=== PATIENT | female | born 1955 | race Caucasian/White ===

== ENCOUNTER → 2017-01-26 | Outpatient (CLI) | payer BC ==
--- NOTE | 2017-01-26 22:19 | CONS ---
DATE OF CONSULTATION: REASON FOR CONSULTATION: Sleep apnea Seda is 61. She was diagnosed having obstructive sleep apnea by Dr. Loera back in 2006. I was able to retrieve the original sleep study and back then the patient had severe CARLOS with an AHI of 53. The patient was offered CPAP therapy initially at a pressure of 8 cm of water and subsequently she was given another titration back in 2009 and she was brought up to a pressure of 10 cm of water. The patient has been on treatment for the past 10 years. She is coming in with request of her having a new machine knowing that her older machine has become noisy and quite ineffective. Note that I have noted that the patient has gained at least 50 pounds over the past 10 years. The patient used to weigh 176 and currently she is up to 226, and her current BMI is 38.7. She is using a Hatch LT nasal pillows. She is snoring while on treatment. She is waking up frequently middle of the night. She goes to bed around 9:00 p.m., wakes at 5:45 a.m. in the morning. On weekends, she wakes up at 730. She is requesting a re-evaluation based on above mentioned changes. PAST MEDICAL HISTORY: 1. Obstructive sleep apnea details as above. 2. Hypertension. 3. Obesity. 4. Hyperlipidemia. 5. Chronic allergic rhinitis. 6. Environmental allergies. 7. Gastroesophageal reflux disease. Surgical history includes oral surgery. DRUG ALLERGIES ARE TO PENICILLIN. Outpatient medication list includes: 1. Atorvastatin. 2. Omeprazole. 3. Losartan. 4. Claritin. 5. Aleve. 6. Centrum. 7. Vitamin B. 8. Vitamin D. 9. Magnesium. 10. Potassium. DRUG ALLERGIES ARE TO PENICILLIN. FAMILY HISTORY: Noncontributory at this stage although positive for sleep apnea, in addition to that, hypertension, heart disease and stroke also run in the family. REVIEW OF SYSTEMS: Twelve-point review of systems was done. Positive findings were all mentioned above in the history of present illness. BP is 134/73, pulse 74, respirations 16, temperature 98.5, saturation 97% on room air. Weight is 226. Height is 5 foot 4, BMI is 38.7. Neck size 14-3/4. GENERAL APPEARANCE: Obese, calm, comfortable. HEENT: Mallampati class III, crowding of posterior pharynx is present. The patient is a micrognathia and high laying tongue. LUNGS: Clear to auscultation. HEART: Sounds are regular rate and rhythm. Normal S1, S2. ABDOMEN: Soft, nontender. No organomegaly. EXTREMITIES: No clubbing, no cyanosis, or clubbing. IMPRESSION: 1. Severe obstructive sleep apnea with a baseline AHI of 53, based on a sleep study that was done 2006. 2. Suboptimal CPAP treatment based on malfunctioning. CPAP unit in addition to a 50 pound weight gain. The patient is currently on a CPAP pressure of 10 cm of water. 3. Hypertension. 4. Obesity. 5. Hyperlipidemia. 6. Chronic allergic rhinitis. 7. Gastroesophageal reflux disease. PLAN: The patient will be asked to come in for another CPAP titration, during which the pressure will be updated. The patient will be given new mask interface. She prefers nasal pillows and we will try to put her on AirFit P10 nasal pillows or any other alternatives that may be comfortable to the patient. She will be encouraged to lose weight. A compliancy check will be done after the patient obtains her CPAP machine following her CPAP titration. Will continue to follow.
== END | disposition home or self-care (01) ==
LOC: SLEEP 13:47
PROVIDERS: ATTEND Internal Medicine Critical Care Medicine
DX: G47.33 Obstructive sleep apnea (adult) (pediatric) (principal); I10 Essential (primary) hypertension; E66.9 Obesity, unspecified; E78.5 Hyperlipidemia, unspecified; J30.9 Allergic rhinitis, unspecified; K21.9 Gastro-esophageal reflux disease without esophagitis; Z79.1 Long term (current) use of non-steroidal anti-inflammatories (NSAID); Z79.899 Other long term (current) drug therapy; Z88.0 Allergy status to penicillin
CPT/HCPCS: 99211

== ENCOUNTER → 2017-04-20 | Outpatient (CLI) | payer BC ==
--- NOTE | 2017-04-23 13:34 | PN ---
Sondra is 61 and she was diagnosed having severe obstructive sleep apnea with an AHI of 53. Today, she is coming in for a compliancy check. She is utilizing CPAP pressure at 13 cm of water. She is benefiting from treatment and she is much more alert and awake during the day and her sleep quality has improved significantly. She is using her CPAP every night. She is averaging around 8.4 hours of CPAP use every night. She is using an AirFit P10 nasal pillow and her leak factor is only at 22 L and her AHI while on treatment is down to 1.8. She has no complaints. BPH is 164/78, pulse is 70, respirations 16, temperature is 98.3, weight is 228 and oxygen saturation 95% on room air. GENERAL APPEARANCE: Calm, comfortable. HEENT: Mallampati class 4. There is no goiter or neck masses. LUNGS: Clear to auscultation. Heart sounds are regular rate and rhythm, normal S1, S2, no S3, no murmurs. Abdomen is soft and nontender, no organomegaly. EXTREMITIES: No edema, no cyanosis or clubbing. IMPRESSION: 1. Severe symptomatic obstructive sleep apnea with an apnea-hypopnea index of 53. The patient has demonstrated excellent clinical response and compliance while on CPAP at a pressure of 15 cm of water. 2. Hypersomnia, improved and the patient's Mcclellan score is down to 3. 3. Obesity, body mass index of 39. 4. Hyperlipidemia, chronic allergic rhinitis. PLAN: Treatment is successful. No changes on the CPAP will be done. Encourage weight loss. See me back in a year's time. Earlier if needed. This is a successful treatment. HANNAH
== END | disposition home or self-care (01) ==
LOC: SLEEP 16:26
PROVIDERS: ATTEND Internal Medicine Critical Care Medicine
DX: G47.33 Obstructive sleep apnea (adult) (pediatric) (principal); G47.10 Hypersomnia, unspecified; E66.9 Obesity, unspecified; Z68.39 Body mass index [BMI] 39.0-39.9, adult

== ENCOUNTER → 2017-12-29 | Outpatient (CLI) | payer BC ==
--- NOTE | 2017-12-29 13:24 | NM ---
EXAMINATION TYPE: NM stress cardiolite complete DATE OF EXAM: 12/29/2017 COMPARISON: NONE HISTORY: Chest pain, abnormal EKG TECHNIQUE: After the intravenous administration of 10.23 mCi Tc 99m Sestamibi - Rest images obtained 45 minutes post injection. The patient exercised using a MARGARITO protocol and 1 minute prior to peak exercise was injected with 26.9 mCi Tc 99m Sestamibi - Stress images obtained 13 minutes post inject ion. FINDINGS: Targeted heart rate was achieved during performance of the study. Review of stress and rest SPECT josé luis ges demonstrates decreased reaffirms that the low uptake along the anterolateral wall the left ventri randal on stress as compared to rest images towards the cardiac apex and extending into the apical regio n and lateral apical location. Gated analysis shows normal wall motion with an estimated left ventri cular ejection fraction of 69 %. IMPRESSION: Findings compatible with stress induced left ventricular myocardial ischemia. Consider echocardiograp hic correlation for elevated ejection fraction A Yellow level critical message alert has been initiated for Nkechi Simmons MD via the [facility] Critical Results System on 12/29/2017 1:21 PM. This message alert has been sent to Nkechi Simmons MD v janie the preferences provided by the clinician for the receipt of Radiology Critical Findings. Message ID [id number].
--- NOTE | 2017-12-29 16:09 | P.STRESS ---
- Stress Test Note Stress Test Results/Findings: Exam Performed: NM stress cardiolite complete Exam Date: 12/29/17 Reason for Exam: CHEST PAIN Height: 5 ft 6 in Weight: 101.151 kg Protocol: MARGARITO Stage: 2 Duration of Exercise: 5:00 Resting Heart Rate: 66 Resting Blood Pressure: 137/90 Maximum Achieved Heart Rate: 133 Maximum Achieved Blood Pressure: 166/69 85% PMHR: 133 100% PMHR: 157 METS: 7.0 Technologist Comment: Stress Test Results/Findings: This is a 62-year-old female with history of hypertension, hypercholesterolemia and family history of ischemic heart disease being evaluated for cardiac status because of chest pains and abnormal EKG. Baseline EKG showed sinus rhythm with evidence of right bundle-branch block pattern. Blood pressure at rest is 130/ 90 with pulse rate of 66. Patient walked on the Margarito protocol for 5 minutes achieving a maximum heart rate of 133 with a blood pressure 166/69. EKGs taken during and after exercise continued to show right bundle-branch block pattern without any significant changes from the baseline. Patient did not express any chest pain. Final impression #1. Nondiagnostic stress test because of baseline EKG changes #2. Report of the nuclear images will be given by the radiologist.
--- NOTE | 2017-12-29 16:36 | ECHOF ---
Referral Reason:Chest Pain R07.9 Abnormal EKG R94.31 MEASUREMENTS -------- HEIGHT: 167.6 cm WEIGHT: 101.2 kg BP: 178/80 RVIDd: 3.6 cm (< 3.3) IVSd: 1.0 cm (0.6 - 1.1) LVIDd: 4.9 cm (3.9 - 5.3) LVPWd: 1.1 cm (0.6 - 1.1) IVSs: 1.5 cm LVIDs: 2.7 cm LVPWs: 1.5 cm LAESV Index (A-L): 18.81 ml/m Ao Diam: 3.4 cm (2.0 - 3.7) AV Cusp: 1.8 cm (1.5 - 2.6) LA Diam: 3.4 cm (2.7 - 3.8) MV E Pradip: 0.98 m/s MV DecT: 259 ms MV A Pradip: 0.77 m/s MV E/A Ratio: 1.27 RAP: 5.00 mmHg RVSP: 33.09 mmHg FINDINGS -------- Sinus rhythm. This was a technically adequate study. The left ventricular size is normal. There is borderline concentric left ventricular hypertrophy. Overall left ventricular systolic function is normal with, an EF between 55 - 60 %. The right ventricle is mildly enlarged. Normal LA size by volume 22+/-6 ml/m2. RA appears enlarged. Aortic valve is trileaflet and is mildly thickened. There is no evidence of aortic regurgitation. There is no evidence of aortic stenosis. The mitral valve is normal. There is trace to mild mitral regurgitation. Trace tricuspid regurgitation present. There is borderline pulmonary hypertension. The right vent ricular systolic pressure, as measured by Doppler, is 33.09mmHg. The pulmonic valve is normal. The aortic root size is normal. Normal inferior vena cava with normal inspiratory collapse consistent with estimated right atrial pre ssure of 5 mmHg. The pericardium is normal. There is no pericardial effusion. CONCLUSIONS -------- 1. Sinus rhythm. 2. This was a technically adequate study. 3. The left ventricular size is normal. 4. There is borderline concentric left ventricular hypertrophy. 5. Overall left ventricular systolic function is normal with, an EF between 55 - 60 %. 6. The right ventricle is mildly enlarged. 7. Normal LA size by volume 22+/-6 ml/m2. 8. RA appears enlarged. 9. Aortic valve is trileaflet and is mildly thickened. 10. There is trace to mild mitral regurgitation. 11. Trace tricuspid regurgitation present. 12. There is borderline pulmonary hypertension. 13. The right ventricular systolic pressure, as measured by Doppler, is 33.09mmHg. 14. The aortic root size is normal. 15. There is no pericardial effusion. TURBOGENERATOR OPERATOR: Cesar Fan RDCS
== END ==
LOC: RADNMMAIN 09:06
PROVIDERS: ATTEND Family Medicine
DX: I51.7 Cardiomegaly (principal); I27.20 Pulmonary hypertension, unspecified
CPT/HCPCS: 93017; 93306; 78452; A9500

== ENCOUNTER → 2018-01-05 | Outpatient (CLI) | payer BC ==
[2018-01-05 12:46] LABS: HCT 41.2 % (34.0-46.0); HGB 13.9 gm/dL (11.4-16.0); MCH 29.7 pg (25.0-35.0); MCHC 33.7 g/dL (31.0-37.0); Mean Platelet Volume 7.6; Platelet Count 238 k/uL (150-450); RBC 4.69 m/uL (3.80-5.40); RDW 12.4 % (11.5-15.5)
[2018-01-05 12:55] LABS: Anion Gap 11 mmol/L; Blood Urea Nitrogen 13 mg/dL (7-17); Carbon Dioxide 30 mmol/L (22-30); Chloride 102 mmol/L (98-107); Potassium 3.8 mmol/L (3.5-5.1); Sodium 143 mmol/L (137-145)
== END | disposition home or self-care (01) ==
LOC: LABPAT 12:01
PROVIDERS: ATTEND Internal Medicine Interventional Cardiology
DX: Z01.812 Encounter for preprocedural laboratory examination (principal); I20.9 Angina pectoris, unspecified
CPT/HCPCS: 80051; 82565; 84520; 85027

== ENCOUNTER → 2018-01-11 | Day surgery (SDC) | payer BC ==
[2018-01-06 15:01] VITALS: BMI 52.1
[~2018-01-11] MED LIST: ALPRAZolam 0.25 MG TAB PO PRN; ALPRAZolam 0.5 MG TAB PO PRN; ASPIRIN 325 MG TAB PO STA; IOHEXOL 350 MG/ML (PER ML) 100ML BTL INJ ONE; LIDOCAINE 2% INJ 20 MG/ML SQ ONE; MIDAZOLAM 2 MG/2 ML VIAL IVP ONE; MIDAZOLAM 2 MG/2 ML VIAL ONE; MORPHINE SULFATE 4 MG/ML SYRINGE IVP ONE; MORPHINE SULFATE 4 MG/ML SYRINGE ONE; NITROGLYCERIN SL TABS 0.4 MG TAB SUBLINGUAL PRN; SODIUM CHLORIDE 0.9% 1,000 ML IV SCH; SODIUM CHLORIDE 0.9% 1,000 ML in EMPTY BAG 1 BAG IV ONE; diphenhydrAMINE 50 MG/ML 1 ML VIAL IVP ONE; diphenhydrAMINE 50 MG/ML 1 ML VIAL ONE
[2018-01-11 06:23] VITALS: TEMP 98.3
[2018-01-11 10:04] VITALS: RESP 18
[2018-01-11 12:32] VITALS: BP 133/63; PULSE 60
--- NOTE | 2018-01-11 13:14 | CC ---
CARDIAC CATHETERIZATION REPORT DATE OF SERVICE: 01/11/2018. PROCEDURE: Left heart catheterization and coronary angiography. PERFORMED BY: Dr. Stacia Bullock. Moderate conscious sedation time was 42 minutes. CLINICAL INFORMATION: Mrs. Sondra Rice is a 62-year-old lady with a history of hypertension, hyperlipidemia, who had a positive stress test with symptoms of chest discomfort and therefore was advised coronary angiography. Risks, benefits, options, rationale were discussed. PROCEDURE NOTE: Under local anesthesia and strict aseptic precautions, a 6-Kyrgyz introducer was placed in the right femoral artery. Using a standard right Rohan catheter, I performed selective coronary angiography of the RCA. However, this catheter came before I did the ARELIS injection and I could not recannulate the vessel. The patient developed transient bradycardia after this episode. However, I could not recannulate the RCA, but the initial angiogram was very good and there was no evidence of any significant disease in the dominant right coronary artery or its branches. Standard left Rohan catheter was used to perform selective coronary angiography of the left system. I then checked LV pressures with a pigtail catheter, but did not perform an LV-gram. A Perclose device was used to secure hemostasis and patient was sent to the room in stable condition. CARDIAC CATHETERIZATION FINDINGS: The left ventricular end-diastolic pressure was 18 mmHg without any gradient across aortic valve. CORONARY ANGIOGRAPHY FINDINGS: RIGHT CORONARY ARTERY: Dominant vessel. No significant disease. Distally it bifurcates into PDA and PLV, both of which supply a fair amount of myocardium. It gives off a large acute marginal branch proximally. No significant disease in the dominant RCA. LEFT MAIN CORONARY ARTERY: Short patent disease-free vessel that bifurcates into LAD and circumflex. LEFT ANTERIOR DESCENDING CORONARY ARTERY: Good caliber vessel extends along the anterior wall. In the middle 1/3, there is a moderate area of calcification noted in the LAD. However, the diagonal is also free of significant disease and the LAD extends all the way to the apex supplying a sizable amount of myocardium. It is a tortuous, disease-free vessel. Mid LAD therefore has moderate area of calcification, but the diagonal is also free of significant disease. LEFT POSTERIOR CIRCUMFLEX CORONARY ARTERY: Technically nondominant vessel gives off 2 obtuse marginals laterally and then runs in the AV groove. No significant disease in the nondominant circumflex system. LEFT VENTRICULOGRAM: This was not performed. FINAL IMPRESSION: This patient has a right dominant system. Slightly elevated filling pressures. No significant coronary artery disease, but there is moderate calcification in the mid left anterior descending artery noted. Left ventriculogram was not performed. RECOMMENDATION: I am recommending that we will pursue aggressive medical therapy with risk factor modification and keep LDL cholesterol under 70. Work with risk factor modification and optimize blood pressure control as well. She will be discharged later on today if she remains stable and I will see her in the office next week. MMODL / IJN: [id number] /
--- NOTE | 2018-01-11 13:14 | LTR ---
January 11, 2018 Dr. Nkechi Simmons Dear Dr. Simmons: Thank you for the opportunity to participate in the care of Mrs. Sondra Rice. I am pleased to report to you that she does not have any significant obstructive CAD. She does have moderate calcification in the coronary arteries and would require aggressive risk factor modification including LDL cholesterol of less than 70. Please find enclosed my cardiac cath report for your records. Thank you for your referral and please call for questions. With kindest regards. Sincerely yours, MD JACOB Quinteros / TONYN: [id number] /
== END | disposition home or self-care (01) ==
LOC: CATHCVL 05:58
PROVIDERS: ATTEND Internal Medicine Interventional Cardiology
DX: I25.110 Atherosclerotic heart disease of native coronary artery with unstable angina pectoris (principal); I10 Essential (primary) hypertension; E78.5 Hyperlipidemia, unspecified; G47.33 Obstructive sleep apnea (adult) (pediatric); E78.00 Pure hypercholesterolemia, unspecified; E66.9 Obesity, unspecified; Z88.0 Allergy status to penicillin; Z87.891 Personal history of nicotine dependence; Z79.82 Long term (current) use of aspirin; Z82.49 Family history of ischemic heart disease and other diseases of the circulatory system; Z79.899 Other long term (current) drug therapy; Z68.43 Body mass index [BMI] 50.0-59.9, adult
CPT/HCPCS: 93458; C1894; C1769 ×2; C1760; J2001; J2250; J2270; J1200; Q9967

== ENCOUNTER → 2018-03-30 | Outpatient (CLI) | payer BC ==
[2018-03-30 08:50] LABS: ALT 40 U/L (9-52); AST 27 U/L (14-36); Cholesterol 150 mg/dL (<200); Creatine Kinase 74 U/L (30-135); HDL Cholesterol 47 mg/dL (40-60); LDL Cholesterol,Calculated 69 mg/dL (0-99); Triglycerides 168 mg/dL (<150)
== END | disposition home or self-care (01) ==
LOC: LABWHC1 07:14
PROVIDERS: ATTEND Internal Medicine Interventional Cardiology
DX: E78.5 Hyperlipidemia, unspecified (principal); I25.10 Atherosclerotic heart disease of native coronary artery without angina pectoris
CPT/HCPCS: 36415; 80061; 82550; 84450; 84460

== ENCOUNTER → 2018-06-01 | Outpatient (CLI) | payer BC ==
--- NOTE | 2018-06-01 15:16 | PN ---
PROGRESS NOTE 63-year-old female patient coming in for an annual check regarding her CARLOS treatment. The patient has severe CARLOS with an AHI of 55 diagnosed few years back and currently she is on CPAP pressure of 13 cm of water. Currently she is using AirFit P10 nose pillow. Compliance data was reviewed, averaging around 8.3 hours of CPAP use per night. Leak factor is 44 L/minute. AHI while on treatment is down to 2.3. Weight is down about 8 pounds compared to last year. She underwent a cardiac catheterization, and she was not found to have insignificant coronary artery disease. No sinus congestion. No nasal drainage. No headaches. No hypersomnia or sleepiness during the day. Sleep quality is very good. The patient continues to benefit from the CPAP treatment. REVIEW OF SYSTEMS: 12-point review of system was done and positive findings are mentioned above history of present illness. PHYSICAL EXAMINATION: BP is 133/69, pulse 66, respirations 16, temperature 97.9, saturation 97% on room air. Weight is 229. Height is 5 feet 4 inches, BMI 37.9. GENERAL APPEARANCE: Calm, comfortable. Head is atraumatic, normocephalic. NECK: Supple. There is no JVD. No goiter or neck mass. LUNGS: Clear to auscultation. HEART: Sounds regular rhythm. Normal S1, S2. No S3, S4. No murmurs. ABDOMEN: Soft, nontender. No organomegaly. EXTREMITIES: No edema. No cyanosis or clubbing. IMPRESSION: 1. Severe symptomatic obstructive sleep apnea with an AHI of 53 currently on CPAP at a pressure of 13 cm of water. 2. Chronic hypersomnia improved. 3. Obesity, with interval weight loss. BMI is down to 37.9. 4. Hyperlipidemia. 5. Chronic allergic rhinitis currently inactive and stable. 6. Normal cardiac catheterization. PLAN: 1. Continue CPAP at same level of pressure. 2. Renew her CPAP supplies including filters, tubing and mask. The patient on an AirFit P10 nose pillow medium size. 3. Encourage further weight loss. 4. See me back in a few year's time in followup. MMODL / IJN: [id number] /
== END | disposition home or self-care (01) ==
LOC: SLEEP 13:52
PROVIDERS: ATTEND Internal Medicine Critical Care Medicine
DX: G47.33 Obstructive sleep apnea (adult) (pediatric) (principal); E66.9 Obesity, unspecified; E78.5 Hyperlipidemia, unspecified; J30.9 Allergic rhinitis, unspecified; Z68.37 Body mass index [BMI] 37.0-37.9, adult; Z99.89 Dependence on other enabling machines and devices

== ENCOUNTER → 2018-08-29 | Outpatient (CLI) | payer BC ==
--- NOTE | 2018-08-30 09:18 | MM ---
Reason for exam: clinical finding. Last mammogram was performed 3 years and 3 months ago. History: Patient is postmenopausal. Physical Findings: Nurse Summary: 1cm nodule in the right breast at 1 o'clock (nurse kp). MG 3D Diag Mammo W/Cad YAN Bilateral CC and MLO view(s) were taken. Prior study comparison: May 21, 2015, bilateral MG screening mammo w CAD. December 16, 2011, bilateral digital screening mammo w/CAD. The breast tissue is almost entirely fat. There is no discrete abnormality including area of concern. No significant new findings when compared with previous films. These results were verbally communicated with the patient and result sheet given to the patient on 08/29/18. ASSESSMENT: Incomplete: need additional imaging evaluation, BI-RAD 0 Incomplete: need additional imaging evaluation, BI-RAD 0 of the right breast. Left breast is negative, BI-RAD 1. RECOMMENDATION: Ultrasound of the right breast. Manage patient on a clinical basis.
--- NOTE | 2018-08-30 09:19 | USB ---
Reason for exam: additional evaluation requested from abnormal screening. History: Patient is postmenopausal. US Breast RT Right complete breast ultrasound includes all four quadrants, the retroareolar region and axilla. Finding demonstrates no cystic or solid lesion seen. These results were verbally communicated with the patient and result sheet given to the patient on 08/29/18. ASSESSMENT: Negative, BI-RAD 1 RECOMMENDATION: Routine screening mammogram of both breasts in 1 year. Manage patient on a clinical basis.
== END ==
LOC: RADMAMWWP 14:48
PROVIDERS: ATTEND Family Medicine
DX: R92.8 Other abnormal and inconclusive findings on diagnostic imaging of breast (principal); N63.10 Unspecified lump in the right breast, unspecified quadrant
CPT/HCPCS: 77062; 77066

== ENCOUNTER → 2018-08-31 | Outpatient (CLI) | payer BC ==
--- NOTE | 2018-08-31 11:16 | BD ---
EXAMINATION TYPE: Axial Bone Density DATE OF EXAM: 08/31/2018 COMPARISON: NONE CLINICAL HISTORY: Height: 65 Weight: 224.3 FRAX RISK QUESTIONS: Alcohol (3 or more units per day): no Family History (Parent hip fracture): yes Glucocorticoids (More than 3mos): no (Ex: prednisone, prednisolone, methylprednisolone, dexamethasone, and hydrocortisone). History of Fracture in Adulthood: no Secondary Osteoporosis: 1. Type 1 Diabetes: no 2. Hyperthyroidism: no 3. Menopause before 45: no 4. Malnutrition: no 5. Chronic liver disease: no Rheumatoid Arthritis: no Current Tobacco Use: no RISK FACTORS HISTORY OF: Family History of Osteoporosis: yes Active: yes Diet low in dairy products/other sources of calcium: yes Postmenopausal woman: age 52 Lost more than 2 inches in height since high school: no MEDICATIONS: losartan, atorvastatin Additional History: EXAM MEASUREMENTS: Bone mineral densitometry was performed using the [employer] System. Bone mineral density as measured about the Lumbar spine is: ----- L1-L4(G/cm2): 1.419 T Score Values are as follows: ----- L2: 2.4 ----- L3: 1.9 ----- L4: 1.5 ----- L1-L4: 2.0 Bone mineral density has: increased 1.8 % since study of: 09.13.2015 Bone mineral density about the R hip (g/cm2): 1.050 Bone mineral density about the L hip (g/cm2): 0.894 T Score values are as follows: -----R Neck: 0.1 -----L Neck: -1.0 -----R Total: 0.8 -----L Total: 0.7 Bone mineral density has: decreased -0.5 % since study of: IMPRESSION: Normal NOTE: T-SCORE=SD OF THE YOUNG ADULT MEAN.
== END | disposition home or self-care (01) ==
LOC: RADBDWWP 07:03
PROVIDERS: ATTEND Family Medicine
DX: Z13.820 Encounter for screening for osteoporosis (principal); Z78.0 Asymptomatic menopausal state; N63.10 Unspecified lump in the right breast, unspecified quadrant
CPT/HCPCS: 77080

== ENCOUNTER → 2019-08-08 | Outpatient (CLI) | payer MEDICARE, BC ==
--- NOTE | 2019-08-08 19:02 | PN ---
PROGRESS NOTE 64-year-old female patient with known history of severe obstructive sleep apnea AHI of 55, currently on CPAP pressure of 13 cm of water. She is coming in for annual check. She is doing well. She has no specific complaints. She is using AirFit P10 nose pillows and she is looking for alternatives. She is still benefitting from the treatment. She feels refreshed and alert during the day. Her treatment has been successful. Her AHI has been down to 1.6 while on treatment with average CPAP use of 8.4 hours per night. Her CPAP use for more than 4 hours is 100%. Leak is at 21 L/minute. She has no specific complaints. REVIEW OF SYSTEMS: Fourteen-point review of system was done. Positive findings are mentioned in history of present illness. No new onset medical problems or comorbidities. Her current weight is around 230 which is comparable to her weight from last year. Vitals: BP is 123/58, pulse 68, respirations 16, temperature 97.9. Saturation 97% on room air. Height 5 feet 4 inches, weight 230, BMI 39.4. GENERAL APPEARANCE: Calm, comfortable. No acute distress. HEAD is atraumatic, normocephalic. NECK: Supple. No JVD. No goiter or neck masses. Mallampati class IV. LUNGS: Clear to auscultation. HEART: Heart sounds are regular rate and rhythm. Normal S1/S2. No S3, no S4. No murmurs. ABDOMEN: Soft, nontender. No organomegaly. EXTREMITIES: No edema. No cyanosis or clubbing. NEUROLOGIC: Awake and alert. There are no focal neurological deficits. PSYCHIATRIC: Negative for anxiety or depression. IMPRESSION: 1. Obstructive sleep apnea. AHI of 55 currently on CPAP pressure of 13 and the patient is well treated and the compliance data indicates that. Lohman score is down to 4. 2. Hypersomnia, improved. 3. Obesity with a body mass index of 39.4. PLAN: 1. Continue CPAP therapy at the same level of pressure. 2. Offer the patient a DreamWear under the nose medium-sized nose mask. 3. Encourage weight loss. 4. See me back in a year's time, earlier if needed. MMODL / IJN: [id number] /
== END | disposition home or self-care (01) ==
LOC: SLEEP 16:08
PROVIDERS: ATTEND Internal Medicine Critical Care Medicine
DX: G47.33 Obstructive sleep apnea (adult) (pediatric) (principal); E66.9 Obesity, unspecified; Z68.39 Body mass index [BMI] 39.0-39.9, adult; Z99.89 Dependence on other enabling machines and devices

== ENCOUNTER → 2020-08-01 | Outpatient (CLI) | payer MEDICARE, BC ==
--- NOTE | 2020-08-02 05:59 | MR ---
EXAMINATION TYPE: MR shoulder RT wo con DATE OF EXAM: 08/01/2020 COMPARISON: None HISTORY: Rt shoulder pain Multiplanar multiecho imaging of the right shoulder was performed without contrast. FINDINGS: There is mild shoulder joint effusion. There is fluid around the biceps tendon. There is subscapulari s intact tendon. Biceps tendon is intact. The glenoid jose appear intact. There is extensive spurring and fluid at the AC joint. There is impingement on the supraspinatus tend on and muscle. There is thickening and increased signal in the supraspinatus tendon over the top of t he humeral head. There is 8 mm degenerative cyst in the greater tuberosity of the humerus. There is n o evidence of a fracture. There is moderate spurring on the humeral head. There is narrowing of the s houlder joint space. 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 There is full-thickness vertical tear thr ough the supraspinatus tendon. There is no retraction. Moderate spurring and fluid at the AC joint wi th subacromial impingement.
--- NOTE | 2020-08-02 06:10 | MR ---
EXAMINATION TYPE: MR shoulder LT wo con DATE OF EXAM: 08/01/2020 COMPARISON: None HISTORY: Lt shoulder pain Multiplanar multiecho imaging of the left shoulder was performed without contrast. FINDINGS: There is moderate hypertrophic spurring on the humeral head. There is severe narrowing of the glenohu meral joint space. There is shoulder joint effusion. Subscapularis tendon is intact. The biceps tendo n is intact. The supraspinatus tendon shows fairly normal signal pattern. There is no retraction. There is no sign ificant edema. There is moderate spurring at the AC joint with subacromial impingement on the suprasp inatus tendon and muscle. The glenoid jose appear intact. IMPRESSION: Moderately severe osteoarthritis of the glenohumeral joint. No fracture. Moderate spurring at the AC joint with subacromial impingement on the supraspinatus tendon and muscle . No evidence of rotator cuff tear.
== END | disposition home or self-care (01) ==
LOC: RADMRIMAIN 08:56
PROVIDERS: ATTEND Nurse Practitioner Family
DX: M19.011 Primary osteoarthritis, right shoulder (principal); M19.012 Primary osteoarthritis, left shoulder; M75.101 Unspecified rotator cuff tear or rupture of right shoulder, not specified as traumatic

== ENCOUNTER → 2020-09-03 | Outpatient (CLI) | payer MEDICARE, BC ==
--- NOTE | 2020-09-03 18:46 | PN ---
PROGRESS NOTE This is a pleasant 65-year-old female patient seeing me in followup at the sleep center regarding her CARLOS. Her baseline disease was severe with an AHI of 55. She continues to be on CPAP therapy. She is at a pressure of 13. I offered her the DreamWear medium- sized [id number]-[id number] mask and she did very well with that. She has been using it for the past year and she has been getting her refills through [facility]. Compliance data show excellent use. She is wearing her CPAP every night, averaging around 9.1 hours of CPAP use per night. She goes to bed around 10 p.m., wakes up at 7 a.m. in the morning. Leak is on the order of 25 L/minute and her AHI while on treatment is down to 1.5. No hypersomnia or sleepiness during the day. No tiredness or fatigue. BP is under good control. No new-onset comorbidities. REVIEW OF SYSTEMS: Fourteen-point review of systems was done and the positive findings are all mentioned above in the history of present illness. PHYSICAL EXAMINATION: BP is 137/69, pulse 68, respirations 16, temperature 98.1. Saturation is 95% to 96% on room air. Weight is 234, BMI is 40.8. Neck size 15 inches. GENERAL APPEARANCE: Calm, comfortable. HEAD: Atraumatic, normocephalic. NECK: Supple. No JVD. No goiter or neck masses. Mallampati class IV. LUNGS: Clear to auscultation. HEART: Heart sounds are regular rate and rhythm. Normal S1, S2. No S3, S4. No murmurs. ABDOMEN: Soft, nontender. No organomegaly. EXTREMITIES: No edema. No cyanosis or clubbing. IMPRESSION: 1. Severe obstructive sleep apnea. AHI of 55. 2. Obstructive sleep apnea treatment with a CPAP pressure of 13 cm of water with excellent clinical response and compliance. 3. Hypersomnia, recovered. 4. Obesity; stable weight. BMI is 40.8. 5. Hypertension, well controlled. 6. Hyperlipidemia. 7. Acid reflux. PLAN: 1. Encourage weight loss. 2. Keep CPAP at same level of pressure, which is 13 cm of water. 3. Continue using the DreamWear medium-sized klalu-xru-zyhy nasal mask. 4. [place] score is down to 4. The patient is doing well. See me back in a year's time in followup, earlier if needed. MMODL / IJN: [id number] /
== END | disposition home or self-care (01) ==
LOC: SLEEP 15:23
PROVIDERS: ATTEND Internal Medicine Critical Care Medicine
DX: G47.33 Obstructive sleep apnea (adult) (pediatric) (principal); I10 Essential (primary) hypertension; E78.5 Hyperlipidemia, unspecified; K21.9 Gastro-esophageal reflux disease without esophagitis; Z99.89 Dependence on other enabling machines and devices; E66.9 Obesity, unspecified; Z68.41 Body mass index [BMI] 40.0-44.9, adult

== ENCOUNTER → 2020-09-16 | Outpatient (CLI) | payer MEDICARE, BC ==
--- NOTE | 2020-09-17 09:41 | MM ---
Reason for exam: screening (asymptomatic). Last mammogram was performed 2 years and 1 month ago. History: Patient is postmenopausal. Physical Findings: A clinical breast exam by your physician is recommended on an annual basis and results should be correlated with mammographic findings. MG 3D Screening Mammo W/Cad Bilateral CC and MLO view(s) were taken. Prior study comparison: August 29, 2018, bilateral MG 3d diag mammo w/cad [facility]. May 21, 2015, bilateral MG screening mammo w CAD. There are scattered fibroglandular densities. There is no discrete abnormality. No significant changes when compared with prior studies. ASSESSMENT: Negative, BI-RAD 1 RECOMMENDATION: Routine screening mammogram of both breasts in 1 year.
== END | disposition home or self-care (01) ==
LOC: RADMAMWWP 09:45
PROVIDERS: ATTEND Family Medicine
DX: Z12.31 Encounter for screening mammogram for malignant neoplasm of breast (principal)
CPT/HCPCS: 77063; 77067

== ENCOUNTER → 2021-09-23 | Outpatient (CLI) | payer MEDICARE ==
--- NOTE | 2021-09-26 09:50 | MM ---
Reason for exam: screening (asymptomatic). Last mammogram was performed 1 year ago. History: Patient is postmenopausal. Physical Findings: A clinical breast exam by your physician is recommended on an annual basis and results should be correlated with mammographic findings. MG 3D Screening Mammo W/Cad Bilateral CC and MLO view(s) were taken. Prior study comparison: September 16, 2020, bilateral MG 3d screening mammo w/cad. August 29, 2018, bilateral MG 3d diag mammo w/cad [facility]. The breast tissue is almost entirely fat. There is no discrete abnormality. No significant changes when compared with prior studies. ASSESSMENT: Negative, BI-RAD 1 RECOMMENDATION: Routine screening mammogram of both breasts in 1 year.
== END | disposition home or self-care (01) ==
LOC: RADMAMWWP 09:30
PROVIDERS: ATTEND Family Medicine
DX: Z12.31 Encounter for screening mammogram for malignant neoplasm of breast (principal); Z78.0 Asymptomatic menopausal state
CPT/HCPCS: 77063; 77067

== ENCOUNTER → 2022-01-06 | Outpatient (CLI) | payer MEDICARE ==
--- NOTE | 2022-01-07 08:05 | MR ---
EXAMINATION TYPE: MR lumbar spine wo con DATE OF EXAM: 01/06/2022 COMPARISON: Lumbar spine x-rays December 05, 2021 HISTORY: Low back pain, pain into right hip that goes down leg for 6 months. TECHNIQUE: Multiplanar, multisequence imaging of the lumbar spine is performed without IV contrast. FINDINGS: Sagittal images of the lumbar spine show vertebral body heights to appear satisfactory. The re is grade 1 anterolisthesis of L4 on L5 redemonstrated and grade 1 retrolisthesis L1 on L2 noted. M ultilevel disc desiccation. Moderate disc space narrowing L5-S1 level with vacuum disc phenomenon and heterogeneous Modic type II endplate changes anteriorly. The conus medullaris is normal in position and signal ending inferior L1 level. Heterogeneous Modic type II endplate changes at L1-L2 level. Axial images at T12-L1 level shows mild broad disc bulge minimally effaces the anterior thecal sac, p atent bilateral neural foramina. Axial images at L1-L2 level [id number] broad disc bulge mildly effacing the anterior thecal sac with mild facet arthropathy and ligament flavum hypertrophy pacing left posterior lateral thecal sac . Patent Bilateral neural foramina. Axial images at L2-L3 level shows [id number] facet arthropathy. Spinal canal is preserved. The bilateral neural foramina are patent. Axial images at L3-L4 level shows mild facet arthropathy and ligamentum flavum hypertrophy with effac ement of the posterolateral thecal sac. There is mild broad disc bulge minimally effacing the anterio r thecal sac. Patent bilateral neural foramina. Axial images at L4-L5 level show moderate to advanced facet arthropathy and ligamentum flavum hypertr ophy. There is spondylolisthesis with broad-based posterior disc protrusion. There is effacement of t he anterior and posterior lateral thecal sac. There is mild bilateral neural foraminal narrowing. Axial images at L5-S1 level show chai-cw-jgfnitft facet arthropathy. There is focal central disc prot rusion minimally effacing the anterior thecal sac. There is mild bilateral neural foraminal narrowing . Partial visualization of sigmoid colonic diverticula. Partial visualization of uterine fundus with ro und lesions of low T2 intensity suspicious for small fibroids. There are extrarenal pelvises bilatera lly. There is 1.1 cm round T2 hyperintense lesion suspected simple thin-walled cyst posteriorly left kidney axial image 26. IMPRESSION: Multilevel spondylolisthesis and degenerative changes in the lumbar spine as detailed abo ve.
== END | disposition home or self-care (01) ==
LOC: RADMRIMAIN 09:30
PROVIDERS: ATTEND Internal Medicine
DX: M47.16 Other spondylosis with myelopathy, lumbar region (principal); M43.16 Spondylolisthesis, lumbar region; M51.06 Intervertebral disc disorders with myelopathy, lumbar region
CPT/HCPCS: 72148

== ENCOUNTER → 2024-07-11 | Outpatient (CLI) | payer MEDICARE ==
--- NOTE | 2024-07-13 10:25 | MM ---
Reason for Exam: Screening (asymptomatic). Last mammogram was performed 1 year(s) and 7 month(s) ago. Patient History: Menarche at age 11. First Full-Term at age 23. Postmenopausal. Risk Values: Seda 5 year model risk: 1.5%. NCI Lifetime model risk: 4.5%. Prior Study Comparison: 09/16/2020 Bilateral Screening Mammogram, [facility]. 09/23/2021 Bilateral Screening Mammogram, [facility]. 12/10/2022 Bilateral MG 3D screening mammo w/cad, [facility]. Tissue Density: The breasts are almost entirely fatty. Findings: Analyzed By CAD. Right breast: There is no suspicious group of microcalcifications or new suspicious mass. Left breast: There is no suspicious group of microcalcifications or new suspicious mass. Overall Assessment: Negative, BI-RAD 1 Management: Screening Mammogram of both breasts in [address] [facility] will attempt to contact patient to return for supplemental views and ultrasound if indicated. Patient should continue monthly self-breast exams. A clinical breast exam by your physician is recommended on an annual basis. This exam should not preclude additional follow-up of suspicious palpable abnormalities. Note on Seda scores and lifetime risk: 1. A Seda score greater than 3% is considered moderate risk. If this is the case, consider specialist referral to assess eligibility for a risk reducing agent. 2. If overall lifetime risk for the development of breast cancer is 20% or higher, the patient may qualify for future screening with alternating mammogram and breast MRI. [facility], , 07/13/2024 10:21 AM. Electronically signed and approved by: David Montoya DO
== END | disposition home or self-care (01) ==
LOC: RADMAMWWP 09:36
PROVIDERS: ATTEND Internal Medicine
CPT/HCPCS: 77063; 77067

== ENCOUNTER 2025-02-15 19:37 | Inpatient (IN) | payer MEDICARE ==
--- NOTE | 2025-02-15 20:48 | ED ---
Abdominal Pain HPI - General Source: patient Mode of arrival: ambulatory Limitations: no limitations <Red Maria - Last Filed: 02/15/25 22:37> <Teresa - Last Filed: 02/16/25 08:40> - General Chief Complaint: Abdominal Pain Stated Complaint: R ABD Pain Time Seen by Provider: 02/15/25 19:58 - History of Present Illness Initial Comments: Dictation was produced using [employer] dictation software. please excuse any grammatical, word or spelling errors. Chief Complaint: 69-year-old female with abdominal pain History of Present Illness: Patient is 69-year-old female presents with 1 to 2 days of abdominal pain. States that her pain is in the right upper quadrant. Denies any history of abdominal surgery. Denies any fever chills or night sweats. She has poor appetite and nausea. States that she is not really passing gas or having bowel movements. States that her pain was exacerbated after eating chicken soup The ROS documented in this emergency department record has been reviewed and confirmed by me. Those systems with pertinent positive or negative responses have been documented in the HPI. All other systems are other negative and/or noncontributory. (Red Maria) - Related Data Home Medications Medication Instructions Recorded Confirmed Omeprazole [PriLOSEC] 20 mg PO DAILY 01/06/18 02/16/25 Cetirizine HCl 10 mg PO DAILY 01/28/22 02/16/25 Ezetimibe [Zetia] 10 mg PO DAILY 01/28/22 02/16/25 Co Q-10(Unknown Dose) 1 tab PO DAILY 02/16/25 02/16/25 Losartan/Hydrochlorothiazide 1 tab PO DAILY 02/16/25 02/16/25 [Hyzaar 100-25 Tablet] Multivitamins, Thera [Multivitamin 1 tab PO DAILY 02/16/25 02/16/25 (formulary)] Rosuvastatin [Crestor] 10 mg PO Q2D 02/16/25 02/16/25 Turmeric(Unknown Dose) 1 tab PO DAILY 02/16/25 02/16/25 Vitamin D3(Unknown Dose) 1 tab PO DAILY 02/16/25 02/16/25 Allergies Allergy/AdvReac Type Severity Reaction Status Date / Time Penicillins Allergy Dyspnea/Rash Verified 02/16/25 07:32 all over body hydromorphone [From Dilaudid] AdvReac Itching Verified 02/16/25 07:32 face Review of Systems ROS Other: All systems not noted in ROS Statement are negative. <Red Maria - Last Filed: 02/15/25 22:37> ROS Other: All systems not noted in ROS Statement are negative. <Teresa Nichols - Last Filed: 02/16/25 08:40> ROS Statement: Those systems with pertinent positive or pertinent negative responses have been documented in the HPI. Past Medical History Past Medical History: Chest Pain / Angina, GERD/Reflux, Hyperlipidemia, Hypertension, Sleep Apnea/CPAP/BIPAP Additional Past Medical History / Comment(s): USES CPAP. RECENT STRESS TEST ABN. History of Any Multi-Drug Resistant Organisms: None Reported Additional Past Surgical History / Comment(s): WISDOM TEETH, EXC MALFORMED TOOTH. COLONOSCOPY. Past Anesthesia/Blood Transfusion Reactions: No Reported Reaction Past Psychological History: No Psychological Hx Reported Smoking Status: Former smoker Past Alcohol Use History: None Reported Past Drug Use History: None Reported - Past Family History Mother Family Medical History: Cancer Father Family Medical History: Pulmonary Embolus <Red Maria - Last Filed: 02/15/25 22:37> General Exam Limitations: no limitations <Red Maria - Last Filed: 02/15/25 22:37> - General Exam Comments Initial Comments: PHYSICAL EXAM: General Impression: Alert and oriented x3, not in acute distress HEENT: Normocephalic atraumatic, extra-ocular movements intact, pupils equal and reactive to light bilaterally, mucous membranes moist. Cardiovascular: Heart regular rate and rhythm Chest: Able to complete full sentences, no retractions, no tachypnea Abdomen: abdomen soft, positive Lim sign, non-distended, no organomegaly Musculoskeletal: Pulses present and equal in all extremities, no peripheral edema Motor: no focal deficits noted Neurological: CN II-XII grossly intact, no focal motor or sensory deficits noted Skin: Intact with no visualized rashes Psych: Normal affect and mood (Red Maria) Course Vital Signs 02/15/25 02/15/25 02/16/25 19:43 22:26 00:39 Temperature 98.0 F Pulse Rate 74 80 80 Pulse Rate [ Pulse Oximetery ] Respiratory 18 18 18 Rate Blood Pressure 159/88 159/72 152/71 Blood Pressure [Left Arm] O2 Sat by Pulse 97 98 97 Oximetry 02/16/25 02/16/25 02/16/25 02:11 03:14 03:40 Temperature 98.3 F 98.3 F Pulse Rate 83 80 Pulse Rate [ 78 Pulse Oximetery ] Respiratory 18 18 18 Rate Blood Pressure 154/73 140/67 Blood Pressure 147/79 [Left Arm] O2 Sat by Pulse 97 97 94 L Oximetry Medical Decision Making - Lab Data Result diagrams: 02/15/25 21:07 02/15/25 21:07 <Red Maria - Last Filed: 02/15/25 22:37> - Lab Data Result diagrams: 02/15/25 21:07 02/15/25 21:07 <Teresa Nichols - Last Filed: 02/16/25 08:40> - Medical Decision Making My EKG interpretation: Ventricular rate 72, sinus rhythm, WY normal 220, QRS 167, QTc 454. No W[place] prolongation, no QTC prolongation, no ST or T-wave changes noted. Overall, this EKG is unremarkable Was pt. sent in by a medical professional or institution (, PA, HEATING AND VENTILATING TENDER, urgent care, hospital, or assisted...) When possible be specific @ -No Did you speak to anyone other than the patient for history (EMS, parent, family, police, friend...)? What history was obtained from this source @ -No Did you review nursing and triage notes (agree or disagree)? Why? @ -I reviewed and agree with nursing and triage notes Were old charts reviewed (outside hosp., previous admission, EMS record, old EKG, old radiological studies, urgent care reports/EKG's, assisted records)? Report findings @ -No old charts were reviewed Differential Diagnosis (chest pain, altered mental status, abdominal pain women, abdominal pain men, vaginal bleeding, musculoskeletal, weakness, fever, dyspnea, syncope, headache, dizziness, GI bleed, back pain, seizure, CVA, palpatations, mental health)? @ -Differential Abdominal Pain Women: Appendicitis, Cholecystitis, diverticulosis, ischemic bowel, pancreatitis, hepatitis, UTI, gastroenteritis, AAA, incarcerated hernia, bowel obstruction, constipation, inflammatory bowel, hepatitis, peptic ulcer disease, splenic infarction, perforated viscus, vulvitis, ovarian torsion, PID, kidney stone, placenta abruption, this is not meant to be an all-inclusive list EKG interpreted by me (3pts min.). @ -See above X-rays interpreted by me (1pt min.). @ -None done CT interpreted by me (1pt min.). @ -CT abdomen pelvis shows no acute processes U/S interpreted by me (1pt. min.). @ -None done What testing was considered but not performed or refused? (CT, X-rays, U/S, labs)? Why? @ -None What meds were considered but not given or refused? Why? @ -None Was smoking cessation discussed for >3mins.? @ -No Were there social determinants of health that impacted care today? How? (Homelessness, low income, unemployed, alcoholism, drug addiction, transpor tation, low edu. Level, literacy, decrease access to med. care, fpc, rehab)? @ -No Was there de-escalation of care discussed even if they declined (Discuss DNR or withdrawal of care, Hospice)? DNR status @ -No What co-morbidities impacted this encounter? (DM, HTN, Smoking, COPD, CAD, Cancer, CVA, ARF, Chemo, Hep., AIDS, mental health diagnosis, sleep apnea, morbid obesity)? @ -None Was patient admitted / discharged? Hospital course, mention meds given and route, prescriptions, significant lab abnormalities, going to OR and other pertinent info. @ -69-year-old female presents emergency department with abdominal pain. She has pain focal to the right upper quadrant. Vital signs upon arrival are within acceptable limits. Patient has positive Lim sign. Laboratory evaluation obtained found to be unremarkable. Abdominal labs negative. CT abdomen pelvis shows no acute processes. Right upper quadrant ultrasound ordered. Patient care signed out to Dr. Nichols at 11:00 PM. Did you discuss the management of the patient with other professionals (professionals i.e. , PA, HEATING AND VENTILATING TENDER, lab, RT, psych nurse, psychiatric social worker, assistant paralegal, teacher, strike warfare/missile systems officer, manager rn case)? Give summary @ -No Was critical care preformed (if so, how long)? @ -No Undiagnosed new problem with uncertain prognosis? @ -No Drug Therapy requiring intensive monitoring for toxicity (Heparin, Nitro, Insulin, Cardizem)? @ -No Were any procedures done? @ -No Diagnosis/symptom? Acute, or Chronic, or Acute on Chronic? Uncomplicated (without systemic symptoms) or Complicated (systemic symptoms)? @ -Right upper quadrant abdominal pain Side effects of treatment? @ -No Exacerbation, Progression, or Severe Exacerbation? @ -No Poses a threat to life or bodily function? How? (Chest pain, [place], [place], pneumonia, PE, COPD, DKA, ARF, appy, cholecystitis, CVA, Diverticulitis, Homicidal, Suicidal, threat to staff... and all critical care pts) @ -yes (Red Maria) Patient was signed out to myself by outgoing physician. Briefly she is a 69-year-old female with a history of hypertension presenting today for right upper quadrant pain. CT negative for acute process. Labs overall reassuring. Currently pending ultrasound right upper quadrant. On my assessment patient endorses increasing pain, ordered additional pain control. Ultrasound was ultimately significant for findings consistent with acute cholecystitis with possible choledocholithiasis. Discussed patient's case with Dr. Garcia, general surgery, kindly accepts patient for admission, recommends antibiotics. Ordered Rocephin and Flagyl. Updated patient to findings plan of care. She is agreeable plan of care. Patient admitted in stable condition. U/S interpreted by me (1pt. min.). Personally reviewed ultrasound of the right upper quadrant, consistent with gallbladder wall thickening, gallstones, gallbladder sludge, possible dilated CBD. Agree with radiologist interpretation (Teresa Nichols) - Lab Data Lab Results 02/15/25 02/15/25 02/15/25 Range/Units 21:07 21:07 21:07 WBC 11.66 H (4.50-10.00) 10*3/uL RBC 4.62 (4.10-5.20) 10*6/uL Hgb 13.6 (12.0-15.0) g/dL Hct 39.6 (37.2-46.3) % MCV 85.7 (80.0-97.0) fL MCH 29.4 (27.0-32.0) pg MCHC 34.3 (32.0-37.0) g/dL Plt Count 192 (140-440) 10*3/uL MPV 10.5 (9.5-12.2) fL Immature Gran % (Auto) 0.3 % Neutrophils % 78.0 % Lymphocytes % 12.3 % Monocytes % 8.4 % Eosinophils % 0.6 % Basophils % 0.4 % Immature Gran # 0.03 (0.00-0.04) 10*3/uL Neutrophils # 9.10 H (1.80-7.70) 10*3/uL Lymphocytes # 1.43 (0.90-5.00) 10*3/uL Monocytes # 0.98 (0.20-1.00) 10*3/uL Eosinophils # 0.07 (0.04-0.35) 10*3/uL Basophils # 0.05 (0.00-0.10) 10*3/uL Sodium 137 (137-145) mmol/L Potassium 3.8 (3.5-5.1) mmol/L Chloride 99 (98-107) mmol/L Carbon Dioxide 29 (22-30) mmol/L Anion Gap 9 mmol/L BUN 15 (7-17) mg/dL Creatinine 0.70 (0.52-1.04) mg/dL Est GFR (CKD-EPI)AfAm >90 (>60 ml/min/1.73 sqM) Est GFR (CKD-EPI)NonAf 88 (>60 ml/min/1.73 sqM) Glucose 120 H (74-99) mg/dL Plasma Lactic Acid Ricky 1.0 (0.7-2.0) mmol/L Calcium 9.8 (8.4-10.2) mg/dL Total Bilirubin 1.2 (0.2-1.3) mg/dL AST 20 (14-36) U/L ALT 18 (4-34) U/L Alkaline Phosphatase 66 (38-126) U/L Total Protein 7.1 (6.3-8.2) g/dL Albumin 4.4 (3.5-5.0) g/dL Lipase 74 (23-300) U/L Disposition <Red Maria - Last Filed: 02/15/25 22:37> <Teresa Nichols - Last Filed: 02/16/25 08:40> Clinical Impression: Acute cholecystitis, Acute calculous cholecystitis Disposition: ADMITTED IP TO THIS HOSP Condition: Stable
[2025-02-15 21:15] LABS: Basophils # (A) 0.05 10*3/uL (0.00-0.10); Basophils % (A) 0.4 %; Eosinophils # (A) 0.07 10*3/uL (0.04-0.35); Eosinophils % (A) 0.6 %; HCT 39.6 % (37.2-46.3); HGB 13.6 g/dL (12.0-15.0); Lymphocytes # (A) 1.43 10*3/uL (0.90-5.00); Lymphocytes % (A) 12.3 %; MCH 29.4 pg (27.0-32.0); MCHC 34.3 g/dL (32.0-37.0); MCV 85.7 fL (80.0-97.0); Mean Platelet Volume 10.5 fL (9.5-12.2); Monocytes # (A) 0.98 10*3/uL (0.20-1.00); Monocytes % (A) 8.4 %; Platelet Count 192 10*3/uL (140-440); RBC 4.62 10*6/uL (4.10-5.20); RDW 11.9 % (11.5-14.5); WBC 11.66 10*3/uL (4.50-10.00)
[2025-02-15 21:25] LABS: ALT 18 U/L (4-34); AST 20 U/L (14-36); African American GFR (CKD) >90 (>60 ml/min/1.73 sqM); Albumin 4.4 g/dL (3.5-5.0); Alkaline Phosphatase 66 U/L (38-126); Anion Gap 9 mmol/L; Blood Urea Nitrogen 15 mg/dL (7-17); Calcium 9.8 mg/dL (8.4-10.2); Carbon Dioxide 29 mmol/L (22-30); Chloride 99 mmol/L (98-107); Glucose 120 mg/dL (74-99); Lipase 74 U/L (23-300); Non-African American GFR(CKD) 88 (>60 ml/min/1.73 sqM); Potassium 3.8 mmol/L (3.5-5.1); Sodium 137 mmol/L (137-145); Total Bilirubin 1.2 mg/dL (0.2-1.3); Total Protein 7.1 g/dL (6.3-8.2)
[2025-02-15] MEDS: MORPHINE SULFATE 4 MG/ML SYRINGE IVP PRN (21:28)
[2025-02-15] MEDS: ONDANSETRON 4 MG/2 ML VIAL IVP STA (21:28)
[2025-02-15] MEDS: SODIUM CHLORIDE 0.9% 1,000 ML IV STA (21:29)
--- NOTE | 2025-02-15 22:29 | CT ---
EXAMINATION TYPE: CT abdomen pelvis w con DATE OF EXAM: 02/15/2025 9:54 PM COMPARISON: None. CLINICAL INDICATION: Female, 69 years old with history of ruq abdominal pain, Pt presents to ED for c /o abdominal pain. Pt denies NVD. TECHNIQUE: Axial images were obtained from above the diaphragm to the pubic rami in the axial plane a t 5 mm thick sections. Reconstructed images are reviewed on the computer in the coronal plane. CONTRAST: 100ml mL of Isovue 300. Study performed without Oral Contrast DLP: 1641.4 mGycm, Automated exposure control for dose reduction was used. FINDINGS: Limited CT sections are obtained the lung bases. The lung bases are clear. CT ABDOMEN: Liver: Normal Spleen: Normal Pancreas: Normal Adrenal glands: The adrenal glands are normal. Gallbladder: Normal Kidneys: No masses are evident. No hydronephrosis is present. No cysts are present. Delayed images were obtained through the kidneys, which remain unremarkable. Aorta: Vascular calcification is within the aorta. Inferior vena cava: Normal. CT PELVIS: Bilateral hip prostheses has some limitation on the inferior pelvis evaluation. Loops of bowel within the abdomen and pelvis are normal. This study is without oral contrast limi ting evaluation. Scattered diverticula are throughout the colon. No acute diverticulitis is evident. Appendix: Not identified. No dilated tubular structure or inflammatory change evident. Urinary bladder: Urinary bladder is limited evaluation Genitourinary structures: Uterus contains calcified fibroids. Adnexa appear unremarkable Osseous structures: No suspicious lytic or sclerotic lesions. IMPRESSION: 1. Diverticulosis without acute diverticulitis scattered throughout the colon. 2. No acute right upper quadrant abnormality on CT [facility], , 02/15/2025 10:22 PM
[2025-02-16] MEDS: ONDANSETRON 4 MG/2 ML VIAL IVP STA (01:49)
--- NOTE | 2025-02-16 01:51 | US ---
EXAM: US Abdomen Complete CLINICAL HISTORY: RUQ pain TECHNIQUE: Real-time ultrasound of the abdomen with image documentation. COMPARISON: CT abdomen 02/15/2025. FINDINGS: Study limited by bowel gas and patient's body habitus. Liver: 15.9 cm length. No mass. No intrahepatic bile duct dilation. Gallbladder: Prominent 11 cm length gallbladder. Small shadowing gallstones within the gallbladder. Possible sludge in the gallbladder neck. Borderline gallbladder wall thickening. Positive sonographic Lim sign. Common bile duct:, Bile duct not well visualized. Probable dilated common bile duct 7.6 cm. No stones. No dilation. Pancreas: Obscured by bowel gas. Right kidney: 13.1 cm length. No stones. No solid mass. No hydronephrosis. Other: No ascites. IMPRESSION: Limited by bowel gas and body habitus. Distended gallbladder with small gallstones and possible sludge. Borderline gallbladder wall thickening. Positive sonographic Lim sign. Common bile duct not well visualized though appears dilated 7.6 mm. Acute cholecystitis/distal bile duct obstruction is suspected. Pancreas obscured by bowel gas.
[2025-02-16] MEDS: MORPHINE SULFATE 4 MG/ML SYRINGE IVP STA (02:07)
[2025-02-16] MEDS ORDERED: ONDANSETRON 4 MG/2 ML VIAL IVP PRN (02:28)
[2025-02-16] MEDS ORDERED: NALOXONE 0.4 MG/ML 1 ML VIAL IV PRN (02:28)
[2025-02-16] MEDS: KETOROLAC 15 MG/ML 1 ML VIAL IVP STA (02:37)
[2025-02-16] MEDS: SODIUM CHLORIDE 0.9% 1,000 ML IV SCH (03:17)
[2025-02-16] MEDS: metroNIDAZOLE-NS PMX 500 MG in SALINE 1 100ML.BAG IVPB STA (04:00)
[2025-02-16] MEDS: PANTOPRAZOLE 40 MG/10 ML VIAL IV SCH (08:04)
[2025-02-16] MEDS: MORPHINE SULFATE 4 MG/ML SYRINGE IV PRN ×2 (08:05→14:36)
[2025-02-16] MEDS: ONDANSETRON 4 MG/2 ML VIAL IVP PRN (09:04)
[2025-02-16 11:15] VITALS: BMI 33.9
[2025-02-16] MEDS: ACETAMINOPHEN IV (For NPO) 1,000 MG in EMPTY BAG 1 BAG IVPB PRN (11:30)
[2025-02-16] MEDS ORDERED: MORPHINE SULFATE 4 MG/ML SYRINGE IV PRN (13:17)
[2025-02-16] MEDS: metroNIDAZOLE-NS PMX 500 MG in SALINE 1 100ML.BAG IVPB SCH (13:24)
--- NOTE | 2025-02-16 13:37 | P.GSHP ---
History of Present Illness H&P Date: 02/16/25 CHIEF COMPLAINT: Right upper quadrant abdominal pain HISTORY OF PRESENT ILLNESS: This is a 69-year-old female who presented with right upper quadrant abdominal pain that started 3 days ago. Patient reports the pain is in the right upper quadrant radiates to the shoulder and the back. She has been nauseous. She did have increased pain after eating chicken noodle soup. Abdominal ultrasound reported distended gallbladder with small gallstone and possible sludge. Positive Lim sign. Acute cholecystitis/distal bile duct obstruction is suspected. LFTs are normal. Denies any fever chills or sweats. Denies any prior abdominal surgery. Denies any cardiac history. Denies being on any blood thinners. PAST MEDICAL HISTORY: GERD/Reflux, Hyperlipidemia, Hypertension, Sleep Apnea/CPAP/BIPAP, PAST SURGICAL HISTORY: none MEDICATIONS: See below ALLERGIES: See below SOCIAL HISTORY: No illicit drug use. REVIEW OF SYSTEMS: CONSTITUTIONAL: Denies fever or chills. HEENT: Denies blurred vision, vision changes, or eye pain. Denies hemoptysis CARDIOVASCULAR: Denies chest pain or pressure. RESPIRATORY: No shortness of breath. GASTROINTESTINAL: See HPI for pertinent findings HEMATOLOGIC: Denies bleeding disorders. GENITOURINARY: Denies any blood in urine or increased urinary frequency. SKIN: Denies pruitis. Denies rash. PHYSICAL EXAM: VITAL SIGNS: Reviewed GENERAL: Well-developed in no acute distress. HEENT: No sclera icterus. Extraocular movements grossly intact. Moist buccal mucosa. Head is atraumatic, normocephalic. No nasal drainage. ABDOMEN: Soft. Nondistended. Right upper quadrant tenderness to palpation NEUROLOGIC: Alert and oriented. Cranial nerves II through XII grossly intact. LABORATORY DATA: WBC is 11.66 Hgb 13.6 platelets 192 Sodium 137 potassium 3.8 creatinine 0.70 Lactic acid 1.0 LFTs are normal Lipase 74 IMAGING: CT scan abdomen pelvis reports a diverticulosis without diverticulitis US reports limited by bowel gas and body habitus. Distended gallbladder with small gallstones and possible sludge. Borderline gallbladder wall thickening. Positive Lim sign. Common bile duct not well-visualized though appears dilated at 7.6 mm. Acute cholecystitis/distal bile duct obstruction is suspected. Pancreas obscured by bowel gas. ASSESSMENT: 1. Acute cholecystitis. Ultrasound reporting distended gallbladder with small gallstones and possible sludge with gallbladder wall thickening. Positive Lim sign. CBD is not dilated it is less than 1 cm. LFTs and total bilirubin are normal. PLAN: - Patient scheduled for laparoscopic cholecystectomy today with Dr. Phelan - Keep patient n.p.o. - Continue antibiotics - Continue pain medication as needed. Morphine dose adjusted for better pain control - Continue IV fluids Physician Fabric Separator Operator note has been reviewed by physician. Signing provider agrees with the documented findings, assessment, and plan of care. Past Medical History Past Medical History: Chest Pain / Angina, GERD/Reflux, Hyperlipidemia, Hypertension, Sleep Apnea/CPAP/BIPAP Additional Past Medical History / Comment(s): USES CPAP History of Any Multi-Drug Resistant Organisms: None Reported Past Surgical History: Orthopedic Surgery Additional Past Surgical History / Comment(s): WISDOM TEETH, EXC MALFORMED TOOTH. COLONOSCOPY, Bilateral hip replacement, left shoulder replacement Past Anesthesia/Blood Transfusion Reactions: No Reported Reaction Past Psychological History: No Psychological Hx Reported Smoking Status: Former smoker Past Alcohol Use History: None Reported Additional Past Alcohol Use History / Comment(s): SMOKED 20 YEARS, 1 PPD OR MORE, QUIT 1994. Past Drug Use History: None Reported - Past Family History Mother Family Medical History: Cancer Additional Family Medical History / Comment(s): Pancreatic cancer Father Family Medical History: Pulmonary Embolus Medications and Allergies Home Medications Medication Instructions Recorded Confirmed Type Omeprazole [PriLOSEC] 20 mg PO DAILY 01/06/18 02/16/25 History Cetirizine HCl 10 mg PO DAILY 01/28/22 02/16/25 History Ezetimibe [Zetia] 10 mg PO DAILY 01/28/22 02/16/25 History Co Q-10(Unknown Dose) 1 tab PO DAILY 02/16/25 02/16/25 History Losartan/Hydrochlorothiazide 1 tab PO DAILY 02/16/25 02/16/25 History [Hyzaar 100-25 Tablet] Multivitamins, Thera [Multivitamin 1 tab PO DAILY 02/16/25 02/16/25 History (formulary)] Rosuvastatin [Crestor] 10 mg PO Q2D 02/16/25 02/16/25 History Turmeric(Unknown Dose) 1 tab PO DAILY 02/16/25 02/16/25 History Vitamin D3(Unknown Dose) 1 tab PO DAILY 02/16/25 02/16/25 History Allergies Allergy/AdvReac Type Severity Reaction Status Date / Time Penicillins Allergy Dyspnea/Rash Verified 02/16/25 07:32 all over body hydromorphone [From Dilaudid] AdvReac Itching Verified 02/16/25 07:32 face Surgical - Exam Vital Signs Temp Pulse Resp BP Pulse Ox 98.0 F 74 18 159/88 97 02/15/25 19:43 02/15/25 19:43 02/15/25 19:43 02/15/25 19:43 02/15/25 19:43 Results - Labs 02/15/25 21:07 02/15/25 21:07 Abnormal Lab Results - Last 24 Hours (Table) 02/15/25 02/15/25 Range/Units 21:07 21:07 WBC 11.66 H (4.50-10.00) 10*3/uL Neutrophils # 9.10 H (1.80-7.70) 10*3/uL Glucose 120 H (74-99) mg/dL Diabetes panel 02/15/25 Range/Units 21:07 Sodium 137 (137-145) mmol/L Potassium 3.8 (3.5-5.1) mmol/L Chloride 99 (98-107) mmol/L Carbon Dioxide 29 (22-30) mmol/L BUN 15 (7-17) mg/dL Creatinine 0.70 (0.52-1.04) mg/dL Glucose 120 H (74-99) mg/dL Calcium 9.8 (8.4-10.2) mg/dL AST 20 (14-36) U/L ALT 18 (4-34) U/L Alkaline Phosphatase 66 (38-126) U/L Total Protein 7.1 (6.3-8.2) g/dL Albumin 4.4 (3.5-5.0) g/dL Calcium panel 02/15/25 Range/Units 21:07 Calcium 9.8 (8.4-10.2) mg/dL Albumin 4.4 (3.5-5.0) g/dL Pituitary panel 02/15/25 Range/Units 21:07 Sodium 137 (137-145) mmol/L Potassium 3.8 (3.5-5.1) mmol/L Chloride 99 (98-107) mmol/L Carbon Dioxide 29 (22-30) mmol/L BUN 15 (7-17) mg/dL Creatinine 0.70 (0.52-1.04) mg/dL Glucose 120 H (74-99) mg/dL Calcium 9.8 (8.4-10.2) mg/dL Adrenal panel 02/15/25 Range/Units 21:07 Sodium 137 (137-145) mmol/L Potassium 3.8 (3.5-5.1) mmol/L Chloride 99 (98-107) mmol/L Carbon Dioxide 29 (22-30) mmol/L BUN 15 (7-17) mg/dL Creatinine 0.70 (0.52-1.04) mg/dL Glucose 120 H (74-99) mg/dL Calcium 9.8 (8.4-10.2) mg/dL Total Bilirubin 1.2 (0.2-1.3) mg/dL AST 20 (14-36) U/L ALT 18 (4-34) U/L Alkaline Phosphatase 66 (38-126) U/L Total Protein 7.1 (6.3-8.2) g/dL Albumin 4.4 (3.5-5.0) g/dL
[2025-02-16] MEDS: LIDOCAINE 1%-EPI 1:100,000 20 ML VIAL SQ ONE ×2 (19:40→20:13)
[2025-02-16] MEDS ORDERED: fentaNYL (PF) 50 MCG/ML 2 ML AMP ONE (19:55)
[2025-02-16] MEDS ORDERED: MIDAZOLAM 2 MG/2 ML VIAL ONE (19:55)
[2025-02-16] MEDS ORDERED: LIDOCAINE 4% LTA KIT (4 ML) TOPICAL ONE (19:55)
[2025-02-16] MEDS ORDERED: PROPOFOL 10 MG/ML 20 ML VIAL IV ONE (19:55)
[2025-02-16] MEDS ORDERED: NEOSTIGMINE 1 MG/ML 10 ML VIAL ONE (19:55)
[2025-02-16] MEDS ORDERED: SUCCINYLCHOLINE CHLORIDE 200 MG/10 ML VIAL IV ONE (19:55)
[2025-02-16] MEDS ORDERED: ROCURONIUM 10 MG/ML (5 ML VIAL) IV ONE (19:55)
[2025-02-16] MEDS ORDERED: LIDOCAINE 1% INJ 10MG/ML (20 ML MDV) ONE (19:55)
[2025-02-16] MEDS ORDERED: GLYCOPYRROLATE 0.2 MG/ML 2 ML VIAL ONE (19:55)
[2025-02-16] MEDS ORDERED: KETOROLAC 15 MG/ML 1 ML VIAL ONE (19:55)
[2025-02-16] MEDS: LACTATED RINGERS 1,000 ML IV ONE (19:58)
--- NOTE | 2025-02-16 20:48 | P.OP ---
Date of Procedure: 02/16/25 Preoperative Diagnosis: acute cholecystitis Postoperative Diagnosis: acute gangrenous cholecystitis Procedure(s) Performed: laparoscopic cholecystectomy Anesthesia: OSCAR Surgeon: Sidney Phelan Estimated Blood Loss (ml): 50 Pathology: other (the gallbladder) Condition: stable Disposition: PACU Operative Findings: gangrenous hydropic cholecystitis Description of Procedure: The patient was placed on the operating table. The patient received a general endotracheal tube anesthesia. The patients abdomen was prepped and draped in the usual sterile fashion. Through an infraumbilical stab incision, the fascia of the anterior abdominal wall was grasped with a pair of Kochers and then the Veress needle was placed in the peritoneal cavity. Position of the Veress needle was confirmed with positive drop test. The abdomen was then insufflated. After adequate insufflation, the 10 mm trocar was placed in the peritoneal cavity. Following this the laparoscope was placed in the peritoneal cavity. The patient was placed in the head-up, right side up position and then a 5 mm trocar was placed in the right lateral and right subcostal position under direct visualization. A 8 mm trocar was placed in the epigastric position. The gallbladder appeared to be hydropic and gangrenous. The gallbladder was aspirated prior to grasping the gallbladder. The gallbladder was grasped in the fundus and infundibulum. Traction on the gallbladder was placed in the lateral and the cephalad positions. The triangle of Calot was visualized.. The cystic duct was bluntly dissected until the union of the cystic duct and common bile duct was seen. A critical view of safety was achieved. The cystic duct was then divided and sealed with the Harmonic scissors. A PDS Endoloop was then placed throughout the cystic duct stump. The cystic artery divided and sealed with the Harmonic scissors. The gallbladder was then removed from the liver bed using Harmonic scissors. The gallbladder was then extracted through the epigastric port site. Operative field was checked for any bleeding spots and Harmonic scissors was used to coagulate the liver bed. The abdomen was irrigated. The trocars were removed. The skin was closed using interrupted 3-0 Vicryl suture. Dermabond dressing were applied. The patient tolerated the procedure well.
[2025-02-16] MEDS: HYDROmorphone 0.5 MG/0.5 ML SYRINGE IVP STA (21:04)
[2025-02-17] MEDS: ENOXAPARIN 40 MG/0.4 ML SYRINGE SQ SCH (08:38)
[2025-02-17] MEDS: MORPHINE SULFATE 2 MG/ML SYRINGE IVP PRN (16:19)
--- NOTE | 2025-02-17 17:15 | P.PN ---
Subjective Progress Note Date: 02/17/25 This is a 69-year-old female who is postop day 0 from laparoscopic cholecystectomy for acute gangrenous cholecystitis. Patient has had complaints of some incisional pain. Patient's nurse noted that she did have some fevers last night. Currently she is afebrile. On exam vital signs appear stable. Incision sites are clean dry intact. Status post laparoscopically cholecystectomy t. Patient can receive IV antibiotics. We c anticipate discharge home in next 48 hours. Objective - Vital Signs Vital signs: Vital Signs Temp 98.9 F 02/17/25 14:21 Pulse 76 02/17/25 14:21 Resp 16 02/17/25 14:21 BP 106/64 02/17/25 14:21 Pulse Ox 96 02/17/25 14:21 FiO2 Intake & Output 02/16/25 02/17/25 02/17/25 18:59 06:59 18:59 Intake Total 800 Output Total 50 Balance 750 Weight 95.254 kg Intake: IV 700 Oral 100 Output: Estimated Blood Loss 50 Other: Voiding Method Toilet Toilet # Voids 1 1 2 - Labs CBC & Chem 7: 02/15/25 21:07 02/15/25 21:07
--- NOTE | 2025-02-18 10:42 | P.PN ---
Subjective Progress Note Date: 02/18/25 Patient still has complaints of fatigue lethargy and abdominal pain. She does not feel like she is ready go home. On exam vital signs appear stable. Abdomen is soft. Incision sites are clean and intact. Status post laparoscopic cholecystectomy for acute gangrenous cholecystitis. Patient continue receive supportive care. She is encouraged to ambulate and use incentive spirometer. Objective - Vital Signs Vital signs: Vital Signs Temp 99.7 F H 02/18/25 07:00 Pulse 94 02/18/25 07:00 Resp 18 02/18/25 07:00 BP 147/74 02/18/25 07:00 Pulse Ox 92 L 02/18/25 07:00 FiO2 Intake & Output 02/17/25 02/18/25 02/18/25 18:59 06:59 18:59 Other: Voiding Method Toilet Toilet # Voids 2 3 - Labs CBC & Chem 7: 02/15/25 21:07 02/15/25 21:07
[2025-02-18] MEDS: IBUPROFEN 600 MG TAB PO PRN (14:24)
[2025-02-19 08:30] LABS: HCT 29.8 % (37.2-46.3); HGB 10.2 g/dL (12.0-15.0); MCH 29.9 pg (27.0-32.0); MCHC 34.2 g/dL (32.0-37.0); MCV 87.4 FL (80.0-97.0); Mean Platelet Volume 11.1 FL (9.5-12.2); NRBC Per 100 WBC 0 X 10*3/uL (0.00-0.01); Platelet Count 187 X 10*3/uL (140-440); RBC 3.41 X 10*6/uL (4.10-5.20); RDW 12.5 % (11.5-14.5); WBC 8.42 X 10*3/uL (4.50-10.00)
[2025-02-19] MEDS: LORATADINE 10 MG TAB PO SCH (10:04)
[2025-02-19] MEDS: HYDROcodone/APAP 5-325MG 1 EACH TAB PO PRN (11:22)
--- NOTE | 2025-02-19 15:07 | P.PN ---
Subjective Progress Note Date: 02/19/25 SURGICAL PROGRESS NOTE CHIEF COMPLAINT: Gangrenous cholecystitis HISTORY OF PRESENT ILLNESS: Postop day #3 status post laparoscopic cholecystectomy. Patient complaining of abdominal pain. She reports hurting with getting up out of bed. She is having flatus. Denies any difficulty urinating. Denies any nausea or vomiting. Afebrile. WBC is down from 11-8. PHYSICAL EXAM: VITAL SIGNS: Reviewed. GENERAL: Well-developed in no acute distress. HEENT: No sclera icterus. Extraocular movements grossly intact. Moist buccal mucosa. Head is atraumatic, normocephalic. ABDOMEN: Soft. Nondistended. Incision sites clean dry and intact. Mild tenderness at incision sites. NEUROLOGIC: Alert and oriented. Cranial nerves II through XII grossly intact. ASSESSMENT: 1. Gangrenous cholecystitis PLAN: - Add oral pain medication. Continue to use ice as needed. - Consult physical therapy to help ambulate patient - Incentive spirometer ordered - Anticipate discharge tomorrow Physician Hose Cementer note has been reviewed by physician. Signing provider agrees with the documented findings, assessment, and plan of care. Objective - Vital Signs Vital signs: Vital Signs Temp 98.7 F 02/19/25 13:48 Pulse 69 02/19/25 13:48 Resp 16 02/19/25 13:48 BP 170/83 02/19/25 13:48 Pulse Ox 99 02/19/25 13:48 FiO2 Intake & Output 02/18/25 02/19/25 02/19/25 18:59 06:59 18:59 Intake Total 118 Balance 118 Weight 95.254 kg Intake: Oral 118 Other: Voiding Method Toilet # Voids 2 2 3 - Labs CBC & Chem 7: 02/19/25 04:05 02/15/25 21:07 Labs: Abnormal Lab Results - Last 24 Hours (Table) 02/19/25 Range/Units 04:05 RBC 3.41 L (4.10-5.20) X 10*6/uL Hgb 10.2 L (12.0-15.0) g/dL Hct 29.8 L (37.2-46.3) %
[2025-02-19] MEDS: Acetaminophen-Codeine 300-30mg TAB PO PRN (16:57)
[2025-02-19] MEDS: LOSARTAN-HCTZ 50-12.5 MG 1 EACH TAB PO SCH (16:59)
[2025-02-19] MEDS: EZETIMIBE 10 MG TAB PO SCH (17:01)
[2025-02-19] MEDS: ATORVASTATIN 20 MG TAB PO SCH (17:01)
[2025-02-19] MEDS: ACETAMINOPHEN TAB 325 MG TAB PO PRN (21:49)
--- NOTE | 2025-02-20 09:32 | P.CONS ---
History of Present Illness - Reason for Consult Consult date: 02/20/25 Medical management Requesting physician: Sidney Phelan - Chief Complaint Status post laparoscopic cholecystectomy - History of Present Illness HISTORY OF PRESENT ILLNESS: This is a 69-year-old female with a previous medical history significant for hypertension and hypertensive cardiovascular disease, mixed hyperlipidemia, history of allergic rhinitis, patient was seen in my office the day before she was admitted to the hospital because of increased abdominal pain associated with burping nausea and no episode of vomiting, suspicious for a acute cholecystitis and biliary dyskinesia, apparently the patient called the next day and stated that she is in pain, she was referred to go to the emergency department, she had a CT scan and abdominal ultrasound that showed evidence of acute cholecystitis and she was seen and admitted by general surgery, and she underwent laparoscopic cholecystectomy, apparently patient did not have any complication postoperatively, patient stayed in the hospital from February 16 yesterday is difficult to see the patient in consultation for medical management. Patient sitting up in bed in recliner chair in no apparent distress, she denies any chest pain, shortness of breath, she has no abdominal pain, nausea vomiting or diarrhea, she had a bowel movement, she is eating her breakfast, she appears to be generally weak, at this time she denies any acute fever or chills at this time, she has no black or tarry stools, she has no significant heartburn, she is having hard time getting out of the bed, she will need some help and assistance with that. Her was at the bedside, we will ask for physical therapy and Occupational Therapy evaluation hopefully the patient will be able to discharge home with home PT today. REVIEW OF SYSTEMS: Constitutional: No documented fever, no chills, no night sweats. No weight change. No weakness, fatigue or lethargy. No daytime sleepiness. EENT: No headache. No blurred vision or double vision, no loss of vision. No loss of Hearing, no ringing in the ears, no dizziness. No nasal drainage or congestion. No epistaxis. No sore throat. Lungs: No shortness of breath, no cough, no sputum production. No wheezing. Reports dyspnea with activity. Cardiovascular: No chest pain, no lower extremity edema. No palpitations. No paroxysmal nocturnal dyspnea. No orthopnea. No lightheadedness or dizziness. No syncopal episodes. Abdominal: Reports abdominal pain. No nausea, vomiting. No diarrhea. No constipation. No bloody or tarry stools reports loss of appetite. Genitourinary: No dysuria, increased frequency, urgency. No urinary retention. Musculoskeletal: No myalgias. No muscle weakness, no gait dysfunction, no frequent falls. No back pain. No neck pain. Integumentary: No wounds, no lesions. No rash or pruritus. No unusual bruising. No change in hair or nails. Neurologic: No aphasia. No facial droop. No change in mentation. No head injury. No headache. No paralysis. No paresthesia. Psychiatric: No depression. No anxiety. No mood swings. Endocrine: No abnormal blood sugars. No weight change. PAST MEDICAL HISTORY: Hypertension and hypertensive cardiovascular disease. Mixed hyperlipidemia. Allergic rhinitis. Obesity with obstructive sleep apnea. Vitamin D deficiency GERD with esophagitis. Prediabetes. Spondylosis of the lumbar spine Mitral regurgitation. Carotid artery disease. PAST SURGICAL HISTORY: Laparoscopic cholecystectomy 02/16/2025. Colonoscopy 06/2009 Left heart catheterization 2017 Right hip replacement 05/13/2022 Left shoulder replacement 01/12/2024 Left hip replacement 05/13/2024 SOCIAL HISTORY: Patient denies any history of smoking, no history of drinking, no history of drug use or abuse. FAMILY HISTORY: Father at the age of 83 from CAD and COPD mother at the age of 72 from pancreatic cancer patient has 1 brother with ITP patient has 1 sister who is 7-year-old is okay, patient has 1 son with drug abuse, patient has 2 daughters 1 with SLE and the other 1 with Raynaud's maternal grandmother from pancreatic cancer as well PHYSICAL EXAMINATION: General: 69-year-old female sitting up in the recliner no apparent distress. HEENT: Head is atraumatic, normocephalic, pupils were equal round reactive to light and recommendation, extraocular muscle movement were intact, sclera nonicteric, conjunctivae were pale, mucous membranes of the mouth are somewhat dry. Neck: Supple, no JVP, normal carotid upstroke bilaterally, no lymphadenopathy. Chest: Decreased breath sounds at the bases, few rhonchi, no expiratory wheezes, no chest wall tenderness, no intercostal retractions. Heart: First heart sound is normal, second heart sounds normal there is systolic ejection murmur 2/6 located in the left sternal border. Abdomen: Soft, mild nonspecific tenderness, stab wounds appears to be clean and dry., nondistended, positive bowel sounds. Extremities: There is no edema no calf tenderness DP +2 bilaterally. Neurologic examination: Patient is awake alert and oriented x3, cranial nerves II-12 appear grossly intact, muscle power were 5 out of 5 in upper extremities and 5 out of 5 in bilateral lower extremities, deep tendon reflexes normal bilaterally. ASSESSMENT AND PLAN: 1. Postoperative day #4 status post laparoscopic cholecystectomy for acute gangrenous cholecystitis. Continue incentive spirometer, increase activity, continue pain management, patient is not able to tolerate pain medicine at this time, she was advised to use Tylenol Motrin as needed, physical therapy radha mishra, laboratory evaluation were reviewed, follow-up with the patient very closely. Patient has been on metronidazole as well as ceftriaxone per general surgery, patient will be switched to oral antibiotic hopefully today 2. Hypertension and hypertensive cardiovascular disease. Continue patient on losartan 50/12.5 mg once every day, monitor the patient blood pressure very closely. 3. Mixed hyperlipidemia. Continue patient on atorvastatin 20 mg once every day, monitor lipid panel as an outpatient. 4. Allergic rhinitis. Stable at this time. Continue loratadine 10 mg once every day, Flonase as needed once every day 5. Obesity with obstructive sleep apnea. Continue patient on CPAP, continue weight loss. 6. GERD with esophagitis. Continue patient on Protonix switch to oral Protonix 40 mg orally once every day. 7. Vitamin D deficiency. Continue vitamin D supplement. 8. Spondylosis of the lumbar spine stable at this time. 9. Prediabetes. Continue low-carb diet, monitor the patient's symptoms very closely, monitor hemoglobin A1c as an outpatient. 10. Carotid artery disease status post ultrasound carotid that showed mild IMT. 11. Mild mitral regurgitation. Echocardiogram is up-to-date. 12. DVT prophylaxis. Continue patient Lovenox 40 mg subcutaneously every 24 hours. 13. GI prophylaxis. Continue PPI. 14. Patient is medically stable for discharge home. 15. Thank you for the consult Past Medical History Past Medical History: Chest Pain / Angina, GERD/Reflux, Hyperlipidemia, Hypertension, Sleep Apnea/CPAP/BIPAP Additional Past Medical History / Comment(s): USES CPAP History of Any Multi-Drug Resistant Organisms: None Reported Past Surgical History: Orthopedic Surgery Additional Past Surgical History / Comment(s): WISDOM TEETH, EXC MALFORMED TOOTH. COLONOSCOPY, Bilateral hip replacement, left shoulder replacement Past Anesthesia/Blood Transfusion Reactions: No Reported Reaction Past Psychological History: No Psychological Hx Reported Smoking Status: Former smoker Past Alcohol Use History: None Reported Additional Past Alcohol Use History / Comment(s): SMOKED 20 YEARS, 1 PPD OR MORE, QUIT 1994. Past Drug Use History: None Reported - Past Family History Mother Family Medical History: Cancer Additional Family Medical History / Comment(s): Pancreatic cancer Father Family Medical History: Pulmonary Embolus Medications and Allergies Home Medications Medication Instructions Recorded Confirmed Type Omeprazole [PriLOSEC] 20 mg PO DAILY 01/06/18 02/16/25 History Cetirizine HCl 10 mg PO DAILY 01/28/22 02/16/25 History Ezetimibe [Zetia] 10 mg PO DAILY 01/28/22 02/16/25 History Co Q-10(Unknown Dose) 1 tab PO DAILY 02/16/25 02/16/25 History Losartan/Hydrochlorothiazide 1 tab PO DAILY 02/16/25 02/16/25 History [Hyzaar 100-25 Tablet] Multivitamins, Thera [Multivitamin 1 tab PO DAILY 02/16/25 02/16/25 History (formulary)] Rosuvastatin [Crestor] 10 mg PO Q2D 02/16/25 02/16/25 History Turmeric(Unknown Dose) 1 tab PO DAILY 02/16/25 02/16/25 History Vitamin D3(Unknown Dose) 1 tab PO DAILY 02/16/25 02/16/25 History Allergies Allergy/AdvReac Type Severity Reaction Status Date / Time Penicillins Allergy Dyspnea/Rash Verified 02/16/25 07:32 all over body hydromorphone [From Dilaudid] AdvReac Itching Verified 02/16/25 07:32 face Physical Exam Vitals: Vital Signs Temp Pulse Resp BP Pulse Ox 02/20/25 01:21 98.4 F 63 18 159/75 96 02/19/25 20:35 98.3 F 73 19 179/92 98 02/19/25 14:00 69 16 02/19/25 13:48 98.7 F 69 16 170/83 99 Intake and Output 02/19/25 02/20/25 02/20/25 22:59 06:59 14:59 Intake Total 120 Balance 120 Intake: Oral 120 Other: Voiding Method Toilet Toilet # Voids 1 1 Results CBC & Chem 7: 02/19/25 04:05 02/15/25 21:07
[2025-02-20 11:43] LABS: Basophils # (A) 0.04 10*3/uL (0.00-0.10); Basophils % (A) 0.5 %; Eosinophils # (A) 0.18 10*3/uL (0.04-0.35); Eosinophils % (A) 2.4 %; HGB 11.1 g/dL (12.0-15.0); Lymphocytes # (A) 1.29 10*3/uL (0.90-5.00); Lymphocytes % (A) 17.4 %; MCH 29.4 pg (27.0-32.0); MCHC 34.7 g/dL (32.0-37.0); MCV 84.9 fL (80.0-97.0); Mean Platelet Volume 9.5 fL (9.5-12.2); Monocytes # (A) 0.62 10*3/uL (0.20-1.00); Monocytes % (A) 8.4 %; Neutrophils # (A) 5.26 10*3/uL (1.80-7.70); Platelet Count 244 10*3/uL (140-440); RBC 3.77 10*6/uL (4.10-5.20); RDW 12.5 % (11.5-14.5); WBC 7.41 10*3/uL (4.50-10.00)
[2025-02-20 12:05] LABS: ALT 19 U/L (4-34); AST 22 U/L (14-36); African American GFR (CKD) >90 (>60 ml/min/1.73 sqM); Albumin 2.9 g/dL (3.5-5.0); Albumin/Globulin Ratio 1.2; Alkaline Phosphatase 73 U/L (38-126); Anion Gap 10 mmol/L; Blood Urea Nitrogen 7 mg/dL (7-17); Calcium 8.6 mg/dL (8.4-10.2); Carbon Dioxide 30 mmol/L (22-30); Chloride 99 mmol/L (98-107); Globulin 2.5 g/dL; Glucose 118 mg/dL (74-99); Non-African American GFR(CKD) >90 (>60 ml/min/1.73 sqM); Potassium 2.8 mmol/L (3.5-5.1); Sodium 139 mmol/L (137-145); Total Bilirubin 0.9 mg/dL (0.2-1.3); Total Protein 5.4 g/dL (6.3-8.2)
[2025-02-20] MEDS: POTASSIUM CHLORIDE ER 20 MEQ TAB.ER PO SCH (14:03)
[2025-02-20] MEDS ORDERED: Magnesium Replacement Protocol 1 EACH MISC MISCELLANE PRN (15:01)
[2025-02-20] MEDS ORDERED: Potassium Replacement Protocol 1 EACH MISC MISCELLANE PRN ×2 (15:01→19:50)
--- NOTE | 2025-02-20 15:04 | P.PN ---
Subjective Progress Note Date: 02/20/25 SURGICAL PROGRESS NOTE CHIEF COMPLAINT: Gangrenous cholecystitis HISTORY OF PRESENT ILLNESS: Postop day #4 status post laparoscopic cholecystectomy. Patient reports that her abdominal pain is less. It is controlled with just plain Tylenol and Motrin. She reports still feeling weak. She did have a bowel movement yesterday. She denies any nausea or vomiting. Overall she reports that she is starting to feel better. Afebrile. WBC 7.41 Hgb 11.1 potassium 2.8 PHYSICAL EXAM: VITAL SIGNS: Reviewed. GENERAL: Well-developed in no acute distress. HEENT: No sclera icterus. Extraocular movements grossly intact. Moist buccal mucosa. Head is atraumatic, normocephalic. ABDOMEN: Soft. Nondistended. Incision sites clean dry and intact. NEUROLOGIC: Alert and oriented. Cranial nerves II through XII grossly intact. ASSESSMENT: 1. Gangrenous cholecystitis 2. Hypokalemia PLAN: -Replace potassium. Repeat potassium level at 6:00 and replace as needed. Also will check magnesium level -Continue pain management -Ensure added for protein supplement -Encourage patient to increase activity level -Anticipate discharge tomorrow Physician Veterinary Epidemiologist note has been reviewed by physician. Signing provider agrees with the documented findings, assessment, and plan of care. Objective - Vital Signs Vital signs: Vital Signs Temp 98.2 F 02/20/25 07:55 Pulse 69 02/20/25 07:55 Resp 16 02/20/25 07:55 BP 150/79 02/20/25 07:55 Pulse Ox 95 02/20/25 07:55 FiO2 Intake & Output 02/19/25 02/20/25 02/20/25 18:59 06:59 18:59 Intake Total 118 360 Balance 118 360 Weight 95.254 kg Intake: Oral 118 360 Other: Voiding Method Toilet Toilet Toilet # Voids 1 1 1 - Labs CBC & Chem 7: 02/20/25 11:25 02/20/25 11:25 Labs: Abnormal Lab Results - Last 24 Hours (Table) 02/20/25 02/20/25 Range/Units 11:25 11:25 RBC 3.77 L (4.10-5.20) 10*6/uL Hgb 11.1 L (12.0-15.0) g/dL Hct 32.0 L (37.2-46.3) % Potassium 2.8 L (3.5-5.1) mmol/L Creatinine 0.49 L (0.52-1.04) mg/dL Glucose 118 H (74-99) mg/dL Total Protein 5.4 L (6.3-8.2) g/dL Albumin 2.9 L (3.5-5.0) g/dL
[2025-02-20] MEDS: ONDANSETRON 4 MG/2 ML VIAL IVP PRN (16:31)
[2025-02-20] MEDS: POTASSIUM BICARBONATE/CIT AC 20 MEQ TABLET.EFF PO SCH (21:11)
[2025-02-21 00:34] VITALS: PULSE 64
[2025-02-21] MEDS: PANTOPRAZOLE 40 MG TABLET PO SCH (05:08)
[2025-02-21 07:31] VITALS: BP 160/81; RESP 15; TEMP 98.4
--- NOTE | 2025-02-21 09:25 | P.PN ---
Subjective Progress Note Date: 02/21/25 HISTORY OF PRESENT ILLNESS: This is a 69-year-old female with a previous medical history signif icant for hypertension and hypertensive cardiovascular disease, mixed hyperlipidemia, history of allergic rhinitis, patient was seen in my office the day before she was admitted to the hospital because of increased abdominal pain associated with burping nausea and no episode of vomiting, suspicious for a acute cholecystitis and biliary dyskinesia, apparently the patient called the next day and stated that she is in pain, she was referred to go to the emergency department, she had a CT scan and abdominal ultrasound that showed evidence of acute cholecystitis and she was seen and admitted by general surgery, and she underwent laparoscopic cholecystectomy, apparently patient did not have any c omplication postoperatively, patient stayed in the hospital from February 16 yesterday is difficult to see the patient in consultation for medical management. Patient sitting up in bed in recliner chair in no apparent distress, she denies any chest pain, shortness of breath, she has no abdominal pain, nausea vomiting or diarrhea, she had a bowel movement, she is eating her breakfast, she appears to be generally weak, at this time she denies any acute fever or chills at this time, she has no black or tarry stools, she has no significant heartburn, she is having hard time getting out of the bed, she will need some help and assistance with that. Her was at the bedside, we will ask for physical therapy and Occupational Therapy evaluation hopefully the patient will be able to discharge home with home PT today. 02/21: Patient sitting up in chair eating her breakfast, she did have an episode of loose diarrhea today, I spoke with the patient about the importance of not eating any fried food or greasy food at this point, she will be given a diet with a low fat diet to follow, she may use [id number] Imodium if needed this will get better down the line, because of her laparoscopic cholecystectomy, monitor the patient very closely, patient potassium is a lot better today, we w ill give her 40 mill equivalent of potassium orally x 1, her magnesium level is okay as well, we will monitor the patient symptoms very closely, patient can be discharged home, follow-up with me as an outpatient next week REVIEW OF SYSTEMS: Constitutional: No documented fever, no chills, no night sweats. No weight change. No weakness, fatigue or lethargy. No daytime sleepiness. EENT: No headache. No blurred vision or double vision, no loss of vision. No loss of Hearing, no ringing in the ears, no dizziness. No nasal drainage or congestion. No epistaxis. No sore throat. Lungs: No shortness of breath, no cough, no sputum production. No wheezing. Reports dyspnea with activity. Cardiovascular: No chest pain, no lower extremity edema. No palpitations. No paroxysmal nocturnal dyspnea. No orthopnea. No lightheadedness or dizziness. No syncopal episodes. Abdominal: Reports abdominal pain. No nausea, vomiting. Positive for diarrhea. No constipation. No bloody or tarry stools reports loss of appetite. Genitourinary: No dysuria, increased frequency, urgency. No urinary retention. Musculoskeletal: No myalgias. No muscle weakness, no gait dysfunction, no frequent falls. No back pain. No neck pain. Integumentary: No wounds, no lesions. No rash or pruritus. No unusual bruising. No change in hair or nails. Neurologic: No aphasia. No facial droop. No change in mentation. No head injury. No headache. No paralysis. No paresthesia. Psychiatric: No depression. No anxiety. No mood swings. Endocrine: No abnormal blood sugars. No weight change. PHYSICAL EXAMINATION: General: 69-year-old female sitting up in the recliner no apparent distress. HEENT: Head is atraumatic, normocephalic, pupils were equal round reactive to light and recommendation, extraocular muscle movement were intact, sclera nonicteric, conjunctivae were pale, mucous membranes of the mouth are somewhat dry. Neck: Supple, no JVP, normal carotid upstroke bilaterally, no lymphadenopathy. Chest: Decreased breath sounds at the bases, few rhonchi, no expiratory wheezes, no chest wall tenderness, no intercostal retractions. Heart: First heart sound is normal, second heart sounds normal there is systolic ejection murmur 2/6 located in the left sternal border. Abdomen: Soft, mild nonspecific tenderness, stab wounds appears to be clean and dry., nondistended, positive bowel sounds. Extremities: There is no edema no calf tenderness DP +2 bilaterally. Neurologic examination: Patient is awake alert and oriented x3, cranial nerves II-12 appear grossly intact, muscle power were 5 out of 5 in upper extremities and 5 out of 5 in bilateral lower extremities, deep tendon reflexes normal bilaterally. ASSESSMENT AND PLAN: 1. Postoperative day #5 status post laparoscopic cholecystectomy for acute gangrenous cholecystitis. Continue incentive spirometer, increase activity, continue pain management, patient is not able to tolerate pain medicine at this time, she was advised to use Tylenol Motrin as needed, physical therapy evaluation, patient is medically stable for discharge 2. Hypertension and hypertensive cardiovascular disease. Continue patient on losartan 50/12.5 mg once every day, monitor the patient blood pressure very closely. 3. Mixed hyperlipidemia. Continue patient on atorvastatin 20 mg once every day, monitor lipid panel as an outpatient. 4. Allergic rhinitis. Stable at this time. Continue loratadine 10 mg once every day, Flonase as needed once every day 5. Obesity with obstructive sleep apnea. Continue patient on CPAP, continue weight loss. 6. GERD with esophagitis. Continue patient on Protonix switch to oral Protonix 40 mg orally once every day. 7. Vitamin D deficiency. Continue vitamin D supplement. 8. Spondylosis of the lumbar spine stable at this time. 9. Prediabetes. Continue low-carb diet, monitor the patient's symptoms very closely, monitor hemoglobin A1c as an outpatient. 10. Carotid artery disease status post ultrasound carotid that showed mild IMT. 11. Mild mitral regurgitation. Echocardiogram is up-to-date. 12. DVT prophylaxis. Continue patient Lovenox 40 mg subcutaneously every 24 hours. 13. GI prophylaxis. Continue PPI. 14. Hypokalemia status post replacement 15. Patient is medically stable for discharge Objective - Vital Signs Vital signs: Vital Signs Temp 98.4 F 02/21/25 07:00 Pulse 64 02/21/25 07:00 Resp 15 02/21/25 07:00 BP 160/81 02/21/25 07:00 Pulse Ox 94 L 02/21/25 07:00 FiO2 Intake & Output 02/20/25 02/21/25 02/21/25 18:59 06:59 18:59 Intake Total 360 Balance 360 Intake: Oral 360 Other: Voiding Method Toilet # Voids 1 2 1 # Bowel Movements 1 - Labs CBC & Chem 7: 02/20/25 11:25 02/21/25 05:12 Labs: Abnormal Lab Results - Last 24 Hours (Table) 04/29/25 04/29/25 04/29/25 Range/Units 11:25 11:25 18:50 RBC 3.77 L (4.10-5.20) 10*6/uL Hgb 11.1 L (12.0-15.0) g/dL Hct 32.0 L (37.2-46.3) % Potassium 2.8 L 3.0 L (3.5-5.1) mmol/L Creatinine 0.49 L (0.52-1.04) mg/dL Glucose 118 H (74-99) mg/dL Total Protein 5.4 L (6.3-8.2) g/dL Albumin 2.9 L (3.5-5.0) g/dL
[2025-02-21] MEDS: POTASSIUM CHLORIDE ER 20 MEQ TAB.ER PO STA (10:06)
--- NOTE | 2025-02-21 10:31 | P.DS ---
Providers Date of admission: 02/16/25 02:31 Expected date of discharge: 02/21/25 Attending physician: Sidney Phelan Consults: 02/19/25 16:39 Consult Physician Routine Consulting Provider: Shadia Barrios Consult Reason/Comments: medical management Do you want consulting provider notified?: Yes Primary care physician: Shadia Barrios Hospital Course: Discharge diagnosis 1. Gangrenous cholecystitis 2. Hypokalemia improved Hospital course This is a 69-year-old female presented with right upper quadrant abdominal pain. Abdominal ultrasound reported distended gallbladder with small gallstone and possible sludge. Positive Lim sign. Patient is status post laparoscopic cholecystectomy. Patient tolerated surgery well. Her pain is controlled. She is tolerating diet. She has been up and ambulating. She is having bowel movements. She is afebrile. Denies any difficulty urinating. She is stable for discharge. Please refer to chart for any further details. Physician Production Tech note has been reviewed by physician. Signing provider agrees with the documented findings, assessment, and plan of care. Patient Condition at Discharge: Stable Plan - Discharge Summary Discharge Rx Participant: No New Discharge Prescriptions: New cefuroxime axetiL [Ceftin] 500 mg PO BID #14 tab metroNIDAZOLE [Flagyl] 500 mg PO TID #21 tab Acetaminophen Tab [Tylenol Tab] 650 mg PO Q4H PRN #30 tablet PRN Reason: Pain Ibuprofen [Motrin] 600 mg PO Q8HR PRN #30 tab PRN Reason: Pain Continue Omeprazole [PriLOSEC] 20 mg PO DAILY Ezetimibe [Zetia] 10 mg PO DAILY Cetirizine HCl 10 mg PO DAILY Multivitamins, Thera [Multivitamin (formulary)] 1 tab PO DAILY Vitamin D3(Unknown Dose) 1 tab PO DAILY Co Q-10(Unknown Dose) 1 tab PO DAILY Turmeric(Unknown Dose) 1 tab PO DAILY Rosuvastatin [Crestor] 10 mg PO Q2D Losartan/Hydrochlorothiazide [Hyzaar 100-25 Tablet] 1 tab PO DAILY Discharge Medication List Omeprazole [PriLOSEC] 20 mg PO DAILY 01/06/18 [History] Cetirizine HCl 10 mg PO DAILY 01/28/22 [History] Ezetimibe [Zetia] 10 mg PO DAILY 01/28/22 [History] Co Q-10(Unknown Dose) 1 tab PO DAILY 02/16/25 [History] Losartan/Hydrochlorothiazide [Hyzaar 100-25 Tablet] 1 tab PO DAILY 02/16/25 [History] Multivitamins, Thera [Multivitamin (formulary)] 1 tab PO DAILY 02/16/25 [History] Rosuvastatin [Crestor] 10 mg PO Q2D 02/16/25 [History] Turmeric(Unknown Dose) 1 tab PO DAILY 02/16/25 [History] Vitamin D3(Unknown Dose) 1 tab PO DAILY 02/16/25 [History] Acetaminophen Tab [Tylenol Tab] 650 mg PO Q4H PRN #30 tablet 02/21/25 [Rx] Ibuprofen [Motrin] 600 mg PO Q8HR PRN #30 tab 02/21/25 [Rx] cefuroxime axetiL [Ceftin] 500 mg PO BID #14 tab 02/21/25 [Rx] metroNIDAZOLE [Flagyl] 500 mg PO TID #21 tab 02/21/25 [Rx] Follow up Appointment(s)/Referral(s): Shadia Barrios MD [Primary Care Provider] - 1-2 days Sidney Phelan MD [STAFF PHYSICIAN] - 2 Weeks Patient Instructions/Handouts: Low Fat Diet (ED) Discharge Disposition: HOME SELF-CARE
== END 2025-02-21 11:57 | disposition home or self-care (01) | DRG 418 ==
LOC: EC 19:37 → 6NMEDSUR 02-16 02:30 → OBSVTOIN 02-16 02:31 → 6NMEDSUR 02-16 02:59
PROVIDERS: ADMIT Surgery; ATTEND Surgery
PROC: 0FT44ZZ Resection of Gallbladder, Percutaneous Endoscopic Approach (ICD-10-PCS; principal; 2025-02-16 16:20)
DX: K80.63 Calculus of gallbladder and bile duct with acute cholecystitis with obstruction (principal); K82.1 Hydrops of gallbladder; K82.A1 Gangrene of gallbladder in cholecystitis; I11.9 Hypertensive heart disease without heart failure; E66.9 Obesity, unspecified; I65.29 Occlusion and stenosis of unspecified carotid artery; R73.03 Prediabetes; M47.816 Spondylosis without myelopathy or radiculopathy, lumbar region; K21.00 Gastro-esophageal reflux disease with esophagitis, without bleeding; J30.9 Allergic rhinitis, unspecified; G47.33 Obstructive sleep apnea (adult) (pediatric); E87.6 Hypokalemia; E78.2 Mixed hyperlipidemia; Z68.33 Body mass index [BMI] 33.0-33.9, adult; E55.9 Vitamin D deficiency, unspecified; Z96.643 Presence of artificial hip joint, bilateral; Z96.612 Presence of left artificial shoulder joint; Z87.891 Personal history of nicotine dependence; Z79.899 Other long term (current) drug therapy; Z88.0 Allergy status to penicillin; Z88.6 Allergy status to analgesic agent
CPT/HCPCS: 36415; 74177; 76705; 80053; 83605; 83690; 83735; 84132; 85025; 85027; 88304; 93005; 96361; 96365; 96375; 96376; 99285